=== PATIENT | female | born 1935 | race Caucasian/White ===

== ENCOUNTER 2023-08-17 09:33 | Inpatient (IN) ==
[2023-08-17] MEDS ORDERED: SODIUM CHLORIDE 0.9% 500 ML IV ONE (10:31)
--- NOTE | 2023-08-17 10:34 | Emergency Department Note ---
Impression & Plan Hypoxia, Weakness, Atrial fibrillation with rapid ventricular response, COVID- 19, Elevated troponin ED Provider Note NAME: CAITLIN CALVERT AGE: 87 SEX: F : 1935 ARRIVES VIA: Ambulance INFORMANT: [Patient][ems] ED PROVIDER(S): [Angel Maynard MD] CHIEF COMPLAINT: Short of breath HISTORY OF PRESENT ILLNESS: The patient is an 87-year-old female who by report, tested positive for COVID-19 around 2 days ago. Patient admits to feeling weak and a bit short of breath and tired. She has noticed some issues with her memory. As per EMS, the patient's O2 saturation was 84% with ambulation. She does not typically wear oxygen. The patient denies any chest pain. She denies fever or chills. There has been no nausea or vomiting. No fall. She just feels very washed out. The patient is a poor historian. PMHx/PSHx/Social Hx: See Below PHYSICAL EXAM: GENERAL: Patient is in no acute distress. HEENT: No acute trauma, normocephalic atraumatic, mucous membranes moist, no nasal congestion. NECK: No stridor, no adenopathy, no meningismus, trachea is midline. LUNGS: Clear to auscultation bilaterally, no wheeze, no rhonchi, breath sounds equal. HEART: Moderately tachycardic with a somewhat irregular rhythm, no murmurs. ABDOMEN: Soft, nontender, no peritonitis. EXTREMITIES: No cyanosis, full range of motion of all the joints without pain or difficulty. NEUROLOGIC: Awake and alert, moves all extremities, no speech slur. Pleasantly confused. SKIN: No jaundice, no diaphoresis. DIFFERENTIAL DIAGNOSIS: Pneumonia, dehydration, electrolyte imbalance, COVID-19, among others. EMERGENCY DEPARTMENT PROCEDURES: MEDICAL DECISION MAKING: There is no leukocytosis or concerning anemia. There is a normal platelet count. No coagulopathy. No renal failure or significant electrolyte abnormality. Lactic acid level is not elevated making severe sepsis less likely. There is no concerning liver enzyme elevation. ECG shows a rapid atrial fibrillation with some ST depression, no ST elevation. Cardiac enzyme testing x 1 is slightly elevated. This troponin elevation could be secondary to cardiac injury or potentially just mismatch from the rapid rate and hypoxia. Chest x-ray does not show CHF, pneumonia or pneumothorax. COVID test returned positive. Influenza and RSV test was negative. The patient was in a rapid A-fib. She received a 500 cc saline bolus. She was given 2 puffs of albuterol via MDI. She was given 25 mg of oral metoprolol succinate. She was ordered for an IV diltiazem bolus of 10 mg to be followed by a diltiazem drip. The patient's heart rate has improved, she seems to be resting comfortably. The patient has COVID-19. She presented with outpatient hypoxia, fatigue, weakness and was noted to be in a rapid A-fib here in the ED. The patient is in need of a hospital stay, I did speak with the case management team, the on-call hospitalist has been consulted. Prior/Outside records/notes reviewed: EMS notes. ECG per my interpretation: Indication was shortness of breath. ECG shows atrial fibrillation with a rapid rate. The rate was 160. There was some diffuse ST depression consistent with the faster rate. There is no ST elevation, no PVCs. The QTc was 486. Continuous Cardiac Monitoring per my interpretation: An order was placed for continuous cardiac monitoring. The monitor shows a rate of 145 with atrial fibrillation. Imaging/x-ray results per my interpretation: Chest x-ray shows some chronic change, no obvious focal pneumonia, no CHF. Chronic Medical/Social conditions affecting care: Advanced age. Care/Management discussed with: Case management, the on-call hospitalist. Level of care consideration(s): After review of the information above and other included data: --I believe the patient requires escalation of care to admission Critical Care Note: I have personally spent 45 minutes of critical care time in the direct management of this patient. This includes bedside care, interpretation of diagnostic studies, and testing, discussion with consultants, patient, and family members, and other required patient management activities. This 45 minutes is in excess of all separately billable procedures. DISPOSITION: Admission Past Med/Surg History Medical History Hypertension Social History Smoking Status: Never smoker Preferred Language: Wolof Feels Safe at Home: Yes Allergies Allergies Allergy/AdvReac Type Severity Reaction Status Date / Time aspirin Allergy Severe Hives Unverified 08/17/23 12:24 Results & Data (ED) Vital Signs Vital Signs - 24 hr 08/17/23 09:36 08/17/23 09:36 08/17/23 11:30 Temperature 36.6 C Temperature Source Temporal Artery Scan Pulse Rate 79 141 H Pulse Rate [Apical] Pulse Rhythm [Apical] Respiratory Rate 18 Respiratory Effort / Characteristics Non-Labored Spontaneous Respiratory Depth Normal Respiratory Pattern Regular Blood Pressure 127/90 Blood Pressure [Right Arm] Blood Pressure Mean 102 Blood Pressure Mean [Right Arm] Blood Pressure Position Sitting Pulse Oximetry 97 97 Oxygen Delivery Method Nasal Cannula Nasal Cannula Oxygen Flow Rate 2 2 Sepsis Recent Fever Within 48 Hours No Sepsis New/Unexplained Change in Mental Status N/A Sepsis Action Taken by Nursing No Action Required 08/17/23 11:30 08/17/23 11:31 08/17/23 11:40 Temperature Temperature Source Pulse Rate 141 H 124 H Pulse Rate [Apical] Pulse Rhythm [Apical] Respiratory Rate 25 H 20 Respiratory Effort / Characteristics Respiratory Depth Respiratory Pattern Blood Pressure 152/112 H Blood Pressure [Right Arm] Blood Pressure Mean 117 Blood Pressure Mean [Right Arm] Blood Pressure Position Pulse Oximetry Oxygen Delivery Method Oxygen Flow Rate Sepsis Recent Fever Within 48 Hours Sepsis New/Unexplained Change in Mental Status Sepsis Action Taken by Nursing 08/17/23 11:50 08/17/23 12:00 08/17/23 12:01 Temperature Temperature Source Pulse Rate 98 H 114 H 109 H Pulse Rate [Apical] Pulse Rhythm [Apical] Respiratory Rate 24 25 H 28 H Respiratory Effort / Characteristics Respiratory Depth Respiratory Pattern Blood Pressure Blood Pressure [Right Arm] Blood Pressure Mean Blood Pressure Mean [Right Arm] Blood Pressure Position Pulse Oximetry Oxygen Delivery Method Oxygen Flow Rate Sepsis Recent Fever Within 48 Hours Sepsis New/Unexplained Change in Mental Status Sepsis Action Taken by Nursing 08/17/23 12:01 08/17/23 12:10 08/17/23 13:25 Temperature Temperature Source Pulse Rate 110 H Pulse Rate [Apical] 97 H Pulse Rhythm [Apical] Irregular Respiratory Rate 25 H 24 Respiratory Effort / Characteristics Respiratory Depth Respiratory Pattern Blood Pressure 128/75 Blood Pressure [Right Arm] 110/79 Blood Pressure Mean 84 Blood Pressure Mean [Right Arm] 89 Blood Pressure Position Pulse Oximetry 94 Oxygen Delivery Method Nasal Cannula Oxygen Flow Rate 2 Sepsis Recent Fever Within 48 Hours Sepsis New/Unexplained Change in Mental Status Sepsis Action Taken by [facility] Medications Current Medication List: was personally reviewed by ma Laboratory Data Attestation: I reviewed the patient's lab results. 08/17/23 11:05 08/17/23 11:05 Lab Results 08/17/23 08/17/23 Range/Units 11:05 12:17 WBC 5.72 (4.8-10.8) K/ul RBC 5.77 H (4.20-5.40) M/uL Hgb 16.6 H (12.0-16.0) g/dl Hct 50.1 H (37.0-47.0) % MCV 86.8 (80.0-100.0) fL MCH 28.8 (25.0-34.0) pg MCHC 33.1 (32.0-36.0) g/dL RDW Std Deviation 47.8 H (36.4-46.3) fL RDW Coeff of Turner 15.6 H (11.5-14.5) % Plt Count 164 (130-400) K/uL MPV 11.3 (9.4-12.4) fL Immature Gran % (Auto) 0.3 % Neut % (Auto) 67.9 % Lymph % (Auto) 19.2 % Mccracken % (Auto) 12.4 % Eos % (Auto) 0.0 % Baso % (Auto) 0.2 % Neut # (Auto) 3.88 (1.40-6.50) K/uL Lymph # (Auto) 1.10 L (1.20-3.40) K/uL [place]racken # (Auto) 0.71 H (0.11-0.59) K/uL Eos # (Auto) 0.00 (0.00-0.50) K/uL Baso # (Auto) 0.01 (0.00-0.20) K/uL Immature Gran # (Auto) 0.02 (0.01-0.20) K/uL PT 11.0 (9.0-12.0) Seconds INR 1.0 (0.9-1.1) APTT 30 (21-31) Seconds PTT Ratio 1.1 Sodium 138 (136-145) mmol/L Potassium 4.7 (3.5-5.1) mmol/L Chloride 104 (98-107) mmol/L Carbon Dioxide 21 (21-32) mmol/L Anion Gap 13 H (3-11) BUN 25 H (6-23) mg/dl Creatinine 1.13 (0.6-1.2) mg/dl Est Cr Clr Drug Dosing Not Reportable Est GFR ( Amer) 51.0 ml/min Est GFR (Non-Af Amer) 44.0 ml/min BUN/Creatinine Ratio 22.1 H (10-20) Glucose 83 (70-99(Fasting)) mg/dl Lactate 1.9 (0.4-2.0) mmol/L Calcium 9.6 (8.6-10.3) mg/dl Magnesium 2.0 (1.7-2.4) mg/dl Total Bilirubin 0.6 (0.2-1.0) mg/dl AST 24 (13-39) U/L ALT 11 (7-52) U/L Alkaline Phosphatase 102 (34-104) U/L Troponin I High Sens 34.4 H (0-14) pg/ml Total Protein 7.2 (6.0-8.3) gm/dl Albumin 3.8 (3.4-5.0) gm/dl Globulin 3.4 (2.5-4.0) gm/dl Albumin/Globulin Ratio 1.1 (0.9-2) SARS-CoV-2 (PCR) POSITIVE A* (Negative) Influenza Type A (PCR) Negative (Neg) Influenza Type B (PCR) Negative (Neg) RSV (RT-PCR) Negative (Neg) Administered Medications Diltiazem HCl 125 mg/ Dextrose 125 mls @ 5 mls/hr IV .Q24H [facility]; Protocol Stop: 09/16/23 11:29 Last Admin: 08/17/23 11:54 Dose: 5 mg/hr, 5 mls/hr Documented By: POOJA Co-signed By: DESEAN Discontinued Medications Albuterol (Albuterol Hfa 8 Gm Inhaler) 2 puffs INH NOW ONE Stop: 08/17/23 11:04 Last Admin: 08/17/23 11:57 Dose: 2 puffs Documented By: POOJA Diltiazem HCl (Diltiazem Hcl 5 Mg/Ml 5 Ml Vial) 10 mg IV NOW STA Stop: 08/17/23 11:31 Last Admin: 08/17/23 11:33 Dose: 10 mg Documented By: POOJA Co-signed By: MNE Sodium Chloride (Nss) 500 mls @ 999 mls/hr IV .Q31M ONE Stop: 08/17/23 11:01 Last Infusion: 08/17/23 12:05 Dose: Infused Documented By: Admin: 08/17/23 11:33 Dose: 999 mls/hr Documented By: POOJA Metoprolol Succinate (Metoprolol Succ 25mg Ext Rel Tab) 25 mg PO NOW STA Stop: 08/17/23 11:31 Last Admin: 08/17/23 11:54 Dose: 25 mg Documented By: POOJA Imaging Data Radiologist's Impression: Chest X-Ray 08/17/23 10:19 XR chest 1V not portable CLINICAL HISTORY: Dyspnea TECHNIQUE: Single frontal radiograph of the chest was obtained. Comparison: None available at the time of this dictation. FINDINGS: No lines and tubes are seen. Cardiomegaly is noted. The aortic arch is calcified. The lungs are clear. No evidence of pleural effusion or pneumothorax. IMPRESSION: No acute abnormalities and in particular no radiographic evidence of pneumonia. ACT 112: Negative or not required by law. Electronically signed by: Shin Thao M.D. 08/17/2023 10:44 AM Discharge Plan Visit Data Chief Complaint: Shortness of Breath/Dyspnea Stated Complaint: SHORTNESS OF BREATH ED Provider: Angel Maynard Discharge Problem: Hypoxia, Weakness, Atrial fibrillation with rapid ventricular response, COVID- 19, Elevated troponin Patient Disposition: Admitted As Inpatient Condition: Fair Forms Stand Alone Forms: [facility] Referrals Referrals: PCP,NO [Primary Care Provider] -
--- NOTE | 2023-08-17 10:46 | XRay Report ---
XR chest 1V not portable CLINICAL HISTORY: Dyspnea TECHNIQUE: Single frontal radiograph of the chest was obtained. Comparison: None available at the time of this dictation. FINDINGS: No lines and tubes are seen. Cardiomegaly is noted. The aortic arch is calcified. The lungs are clear . No evidence of pleural effusion or pneumothorax. IMPRESSION: No acute abnormalities and in particular no radiographic evidence of pneumonia. ACT 112: Negative or not required by law. Electronically signed by: Shin Thao M.D. 08/17/2023 10:44 AM
[2023-08-17] MEDS ORDERED: ALBUTEROL HFA 8 GM INHALER INH ONE (11:03)
[2023-08-17 11:27] LABS: Basophils # (auto) 0.01 K/uL (0.00-0.20); Basophils % (auto) 0.2 %; Hematocrit (blood only) 50.1 % (37.0-47.0); Hemoglobin 16.6 g/dl (12.0-16.0); Immature Granulocytes # (auto) 0.02 K/uL (0.01-0.20); Immature Granulocytes % (auto) 0.3 %; Lymphocytes % (auto) 19.2 %; Mean Corpuscular Hemoglobin 28.8 pg (25.0-34.0); Mean Corpuscular Hgb Conc 33.1 g/dL (32.0-36.0); Mean Corpuscular Volume 86.8 fL (80.0-100.0); Mean Platelet Volume 11.3 fL (9.4-12.4); Monocytes # (auto) 0.71 K/uL (0.11-0.59); Monocytes % (auto) 12.4 %; Neutrophils # (auto) 3.88 K/uL (1.40-6.50); Neutrophils % (auto) 67.9 %; Platelet Count 164 K/uL (130-400); RDW Coefficient of Variation 15.6 % (11.5-14.5); RDW Standard Deviation 47.8 fL (36.4-46.3); Red Blood Count 5.77 M/uL (4.20-5.40); White Blood Count 5.72 K/ul (4.8-10.8)
[2023-08-17] MEDS ORDERED: dilTIAZem HCl 5 MG/ML 5 ML VIAL IV STA (11:30)
[2023-08-17] MEDS ORDERED: STAT IV Infusion **Titration per Protocol STA (11:30)
[2023-08-17] MEDS ORDERED: METOPROLOL SUCC 25MG EXT REL TAB PO STA (11:30)
[2023-08-17 11:42] LABS: Alanine Aminotransferase 11 U/L (7-52); Albumin Globulin Ratio 1.1 (0.9-2); Albumin Level 3.8 gm/dl (3.4-5.0); Alkaline Phosphatase 102 U/L (34-104); Anion Gap 13 (3-11); Aspartate Aminotransferase 24 U/L (13-39); BUN Creatinine Ratio 22.1 (10-20); Bilirubin,Total 0.6 mg/dl (0.2-1.0); Blood Urea Nitrogen 25 mg/dl (6-23); Calcium 9.6 mg/dl (8.6-10.3); Carbon Dioxide 21 mmol/L (21-32); Chloride 104 mmol/L (98-107); Globulin 3.4 gm/dl (2.5-4.0); Glucose 83 mg/dl (70-99(Fasting)); Potassium 4.7 mmol/L (3.5-5.1); Sodium 138 mmol/L (136-145); Total Protein 7.2 gm/dl (6.0-8.3)
[2023-08-17 11:48] LABS: Troponin I High Sensitivity 34.4 pg/ml (0-14)
[2023-08-17] MEDS: dilTIAZem HCL 125 MG in DEXTROSE 5% 100 ML IV SCH (11:54)
[2023-08-17 12:03] LABS: Influenza A virus by PCR Negative (Neg); Influenza B virus by PCR Negative (Neg); RSV by PCR Negative (Neg)
[2023-08-17 12:12] LABS: Partial Thromboplastin Ratio 1.1; Partial Thromboplastin Time 30 Seconds (21-31)
[2023-08-17 12:22] LABS: SARS CoV2 RNA(COVID-19) Ceph POSITIVE (Negative)
--- NOTE | 2023-08-17 12:56 | History & Physical Report ---
Date of Service August 17, 2023 Assessment & Plan (1) Confusion and disorientation: (2) COVID-19: (3) Atrial fibrillation with rapid ventricular response: (4) Weakness: (5) Dementia: (6) Hyperlipidemia: (7) Asthma: (8) Thoracic aortic ectasia: (9) CAD (coronary artery disease): (10) GERD (gastroesophageal reflux disease): (11) Neuropathy: (12) Restless leg syndrome: (13) Hypoxia: (14) Elevated troponin: Plan Confusion and disorientation- Multiple likely contributing factors including but not limited to: Aggravation of underlying dementia, COVID-19 infection, atrial fibrillation with RVR, dehydration Atrial fibrillation with RVR/A-fib history/elevated troponin- The patient will be admitted to telemetry for serial cardiac enzymes, serial EKG's, cardiac rhythm monitoring and a 2-D echocardiogram with Dopplers. Given diltiazem 10 mg IV followed by diltiazem drip with titration protocol, and will continue She was also given metoprolol succinate 25 mg p.o. by ED Troponin on admission was 34.4, follow serially, but likely secondary to A-fib with RVR Status post normal saline 500 mL bolus Give additional normal saline at 80 mL/h for additional 500 mL Continue apixaban COVID-19 infection- unclear length of time that she has had the infection EMS reports that she was 84% on room air when initially seen She has improved to 94% on room air Hold treatment at this time due to lack of pulmonary symptoms, and concern regarding possibly aggravating current confusion History of Present Illness Chief Complaint: The patient is referred from the [place], due to issues of worsening confusion and generalized weakness. Primary Care Provider: NO PCP The patient is an 87-year-old female with a past medical history including CAD, atrial fibrillation on Eliquis, hyperlipidemia, thoracic aortic ectasia, GERD, neuropathy, thrombocytopenia, restless leg syndrome, dementia, anxiety, and asthma who was referred to the emergency department due to worsening confusion over the past few days. The patient is very confused upon presentation, and is not able to contribute to her HPI or review of systems. Information is reviewed from the [place]. Significant laboratories: Troponin 34.4, hemoglobin 16.6, hematocrit 50.1, COVID-19 positive. RSV negative and influenza negative EKG shows atrial fibrillation with RVR at 160, for which she was given diltiazem 10 mg IV followed by diltiazem drip with titration protocol, NSS 500 mL, and metoprolol succinate 25 mg p.o. with improved rate control. Ordered CT head without contrast to further assess confused state Allergies Allergy/AdvReac Type Severity Reaction Status Date / Time aspirin Allergy Severe Hives Unverified 08/17/23 12:24 Home Medications Medication Instructions Recorded Confirmed Type acetaminophen 325 mg tablet 650 mg PO Q6H PRN pain or fever 08/17/23 08/17/23 History (Tylenol) apixaban 2.5 mg tablet (Eliquis) 2.5 mg PO DAILY 08/17/23 08/17/23 History buspirone 5 mg tablet 5 mg PO Q8H PRN Anxiety 08/17/23 08/17/23 History pantoprazole 20 mg tablet,delayed 20 mg PO DAILY 08/17/23 08/17/23 History release ropinirole 4 mg tablet 2 mg PO BID 08/17/23 08/17/23 History venlafaxine 150 mg 150 mg PO DAILY 08/17/23 08/17/23 History capsule,extended release 24 hr Past Med/Surg History Medical History (Updated 08/17/23 @ 18:29 by Stefano Arriaga MD) Restless leg syndrome Neuropathy GERD (gastroesophageal reflux disease) CAD (coronary artery disease) Thoracic aortic ectasia Asthma Hyperlipidemia Dementia Hypertension Social History Smoking Status: Never smoker Hx Alcohol Use: No Hx Substance Use: No Preferred Language: Occitan Communication Ability: Effective Lidar Scientist Required: No Beliefs That Will Affect Care: None Current Living Situation: Alone Feels Safe at Home: Yes Assistive Devices: Glasses Review of Systems Review of Systems: Not obtainable due to dementia and altered mental state Physical Exam Physical Exam: The patient is awake, very confused, oftentimes repeating the same question, normocephalic and atraumatic, lying in bed and in no acute distress. HEENT--PERRL, EOMI, mucous membranes and oropharynx mildly dry. Neck--supple. No JVD. No bruits. Thyroid normal, trachea midline, no adenopathy. Heart--normal S1 and S2. No murmurs, rubs or gallops. Lungs--clear bilaterally, no respiratory distress, no accessory muscle use. Abdomen--normal bowel sounds and soft. Nontender. Nondistended Dermatologic--normal skin turgor, normal color, Neurologic--cranial nerves II through XII grossly intact. Rheumatologic--normal range of motion. Psychiatric--very confused Results & Data Results & Data Vital Signs (Past 12 Hours) Vital Signs Temp Pulse Resp BP Pulse Ox O2 Del Method O2 Flow Rate 08/17/23 11:30 141 H 08/17/23 09:36 97 Nasal Cannula 2 08/17/23 09:36 36.6 C 79 18 127/90 97 Nasal Cannula 2 Laboratory Results Laboratory Results WBC 5.72 K/ul (4.8-10.8) 08/17/23 11:05 RBC 5.77 M/uL (4.20-5.40) H 08/17/23 11:05 Hgb 16.6 g/dl (12.0-16.0) H 08/17/23 11:05 Hct 50.1 % (37.0-47.0) H 08/17/23 11:05 MCV 86.8 fL (80.0-100.0) 08/17/23 11:05 MCH 28.8 pg (25.0-34.0) 08/17/23 11:05 MCHC 33.1 g/dL (32.0-36.0) 08/17/23 11:05 RDW Std Deviation 47.8 fL (36.4-46.3) H 08/17/23 11:05 RDW Coeff of Turner 15.6 % (11.5-14.5) H 08/17/23 11:05 Plt Count 164 K/uL (130-400) 08/17/23 11:05 MPV 11.3 fL (9.4-12.4) 08/17/23 11:05 Immature Gran % (Auto) 0.3 % 08/17/23 11:05 Neut % (Auto) 67.9 % 08/17/23 11:05 Lymph % (Auto) 19.2 % 08/17/23 11:05 [place] % (Auto) 12.4 % 08/17/23 11:05 Eos % (Auto) 0.0 % 08/17/23 11:05 Baso % (Auto) 0.2 % 08/17/23 11:05 Neut # (Auto) 3.88 K/uL (1.40-6.50) 08/17/23 11:05 Lymph # (Auto) 1.10 K/uL (1.20-3.40) L 08/17/23 11:05 [place] # (Auto) 0.71 K/uL (0.11-0.59) H 08/17/23 11:05 Eos # (Auto) 0.00 K/uL (0.00-0.50) 08/17/23 11:05 Baso # (Auto) 0.01 K/uL (0.00-0.20) 08/17/23 11:05 Immature Gran # (Auto) 0.02 K/uL (0.01-0.20) 08/17/23 11:05 PT 11.0 Seconds (9.0-12.0) 08/17/23 11:05 INR 1.0 (0.9-1.1) 08/17/23 11:05 APTT 30 Seconds (21-31) 08/17/23 11:05 PTT Ratio 1.1 08/17/23 11:05 Sodium 138 mmol/L (136-145) 08/17/23 11:05 Potassium 4.7 mmol/L (3.5-5.1) 08/17/23 11:05 Chloride 104 mmol/L (98-107) 08/17/23 11:05 Carbon Dioxide 21 mmol/L (21-32) 08/17/23 11:05 Anion Gap 13 (3-11) H 08/17/23 11:05 BUN 25 mg/dl (6-23) H 08/17/23 11:05 Creatinine 1.13 mg/dl (0.6-1.2) 08/17/23 11:05 Est Cr Clr Drug Dosing Not Reportable 08/17/23 11:05 Est GFR ( Amer) 51.0 ml/min 08/17/23 11:05 Est GFR (Non-Af Amer) 44.0 ml/min 08/17/23 11:05 BUN/Creatinine Ratio 22.1 (10-20) H 08/17/23 11:05 Glucose 83 mg/dl (70-99(Fasting)) 08/17/23 11:05 Lactate 1.9 mmol/L (0.4-2.0) 08/17/23 12:17 Calcium 9.6 mg/dl (8.6-10.3) 08/17/23 11:05 Magnesium 2.0 mg/dl (1.7-2.4) 08/17/23 11:05 Total Bilirubin 0.6 mg/dl (0.2-1.0) 08/17/23 11:05 AST 24 U/L (13-39) 08/17/23 11:05 ALT 11 U/L (7-52) 08/17/23 11:05 Alkaline Phosphatase 102 U/L (34-104) 08/17/23 11:05 Troponin I High Sens 34.4 pg/ml (0-14) H 08/17/23 11:05 Total Protein 7.2 gm/dl (6.0-8.3) 08/17/23 11:05 Albumin 3.8 gm/dl (3.4-5.0) 08/17/23 11:05 Globulin 3.4 gm/dl (2.5-4.0) 08/17/23 11:05 Albumin/Globulin Ratio 1.1 (0.9-2) 08/17/23 11:05 SARS-CoV-2 (PCR) POSITIVE (Negative) A* 08/17/23 11:05 Influenza Type A (PCR) Negative (Neg) 08/17/23 11:05 Influenza Type B (PCR) Negative (Neg) 08/17/23 11:05 RSV (RT-PCR) Negative (Neg) 08/17/23 11:05 Impressions Chest X-Ray 08/17/23 10:19 XR chest 1V not portable CLINICAL HISTORY: Dyspnea TECHNIQUE: Single frontal radiograph of the chest was obtained. Comparison: None available at the time of this dictation. FINDINGS: No lines and tubes are seen. Cardiomegaly is noted. The aortic arch is calcified. The lungs are clear. No evidence of pleural effusion or pneumothorax. IMPRESSION: No acute abnormalities and in particular no radiographic evidence of pneumonia. ACT 112: Negative or not required by law. Electronically signed by: Shin Thao M.D. 08/17/2023 10:[address] 08/17/23 12:49 CT SCAN OF THE BRAIN WITHOUT IV CONTRAST CLINICAL HISTORY: Change in mental status. COMPARISON STUDY: No priors. TECHNIQUE: Unenhanced axial CT scan of the brain is performed from the vertex to the skull base. A dose lowering technique was utilized adhering to the principles of ALARA. CT DOSE: 547.75 mGy.cm FINDINGS: Brain parenchyma: There is age-related involutional change noting moderate confluent subcortical and periventricular microangiopathic disease. There is no hemorrhage, mass effect, or evidence of acute territorial ischemia by CT criteria. 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 Leon- white matter differentiation is preserved. No extra-axial fluid collection is seen. Ventricles, sulci, cisterns: Prominent secondary to involutional change. Intracranial vasculature: There is atherosclerotic calcification of the cavernous carotid and vertebral arteries. Calvarium: Unremarkable. Sinuses and mastoids: There is an air-fluid level in the right maxillary antrum. Trace mucosal thickening is noted in the ethmoid, left frontal, sphenoid, and left maxillary sinuses. The mastoid air cells are well pneumatized. Orbits: The bony orbits are grossly intact. There are bilateral ocular lens implants. IMPRESSION: There is no hemorrhage, mass effect, or evidence of acute t erritorial ischemia by CT criteria. ACT 112: Negative or not required by law. Electronically signed by: Angel Brock M.D. 08/17/2023 2:16 PM Code Status & VTE Plan Code Status DNR/DNI VTE Prophylaxis Plan VTE Prophylaxis will be ordered: Yes PG Care Time/CCT Total # of Minutes Spent Total Time Spent with Patient: Total time spent is greater than 50% in coordination of care (as documented) at patient's floor/unit and/or counseling patient: Coding Level of Care Code 66587 INT INP/OBS CARE 3/75MIN Diagnoses Confusion and disorientation R41.0 COVID-19 U07.1 Atrial fibrillation with rapid ventricular response I48.91 Weakness R53.1 Dementia F03.90 Hyperlipidemia E78.5 Asthma J45.909 Thoracic aortic ectasia I77.810 CAD (coronary artery disease) I25.10 GERD (gastroesophageal reflux disease) K21.9 Neuropathy G62.9 Restless leg syndrome G25.81 Hypoxia R09.02 Elevated troponin R79.89
--- NOTE | 2023-08-17 13:50 | Electrocardiogram Report ---
Test Reason : Blood Pressure : / mmHG Vent. Rate : 160 BPM Atrial Rate : 000 BPM P-R Int : 000 ms QRS Dur : 070 ms QT Int : 298 ms P-R-T Axes : 000 057 267 degrees QTc Int : 486 ms Atrial fibrillation with rapid ventricular response Abnormal ECG No previous ECGs available Confirmed by Jose Kaplan ([id number]) on 08/17/2023 1:49:22 PM Referred By: REFERRED SELF Confirmed By:Memo Kaplan
--- NOTE | 2023-08-17 14:18 | CT Scan Report ---
CT SCAN OF THE BRAIN WITHOUT IV CONTRAST CLINICAL HISTORY: Change in mental status. COMPARISON STUDY: No priors. TECHNIQUE: Unenhanced axial CT scan of the brain is performed from the vertex to the skull base. A do se lowering technique was utilized adhering to the principles of ALARA. CT DOSE: 547.75 mGy.cm FINDINGS: Brain parenchyma: There is age-related involutional change noting moderate confluent subcortical and periventricular microangiopathic disease. There is no hemorrhage, mass effect, or evidence of acute t erritorial ischemia by CT criteria. 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 Gr ay-white matter differentiation is preserved. No extra-axial fluid collection is seen. Ventricles, sulci, cisterns: Prominent secondary to involutional change. Intracranial vasculature: There is atherosclerotic calcification of the cavernous carotid and vertebr al arteries. Calvarium: Unremarkable. Sinuses and mastoids: There is an air-fluid level in the right maxillary antrum. Trace mucosal thicke royce is noted in the ethmoid, left frontal, sphenoid, and left maxillary sinuses. The mastoid air krystyna ls are well pneumatized. Orbits: The bony orbits are grossly intact. There are bilateral ocular lens implants. IMPRESSION: There is no hemorrhage, mass effect, or evidence of acute territorial ischemia by CT abran rizzo. ACT 112: Negative or not required by law. Electronically signed by: Angel Brock M.D. 08/17/2023 2:16 PM
[2023-08-17] MEDS ORDERED: ACETAMINOPHEN 325 MG TAB PO PRN (14:36)
[2023-08-17] MEDS ORDERED: ONDANSETRON INJ 2 MG/ML 2 ML VIAL IV PRN (14:36)
[2023-08-17] MEDS ORDERED: SODIUM CHLORIDE 0.9% 1,000 ML IV SCH (14:36)
--- NOTE | 2023-08-17 16:47 | Cardiology Consultation ---
Date of Consultation August 17, 2023 Assessment & Plan (1) Atrial fibrillation with rapid ventricular response: Plan 1. Atrial fibrillation: Patient with a history of atrial fibrillation. No documentation regarding the chronicity of her atrial fibrillation. Possibly permanent. Possibly paroxysmal. It is very likely that the higher ventricular rates are associated with her viral infection and possibly an element volume depletion. No symptoms. Continue diltiazem infusion Add oral metoprolol on a scheduled basis titrating the dose so that the diltiazem can be discontinued Continue volume repletion Ventricular rates may improve as her clinical condition resolves itself Continue systemic anticoagulation 2. Elevated troponin: This is a setting of high ventricular rates. Very mild elevation. Not indicative of an acute coronary syndrome. I would not pursue this further given her overall good clinical status and significant dementia. Dr. Oliveira will be covering the cardiology service for the next 3 days. Please contact him if you require further assistance History of Present Illness Reason for Consultation: Atrial fibrillation Requesting Physician: Bart Attending Physician: Stefano Arriaga MD History of Present Illness Patient suffers from dementia and can provide no meaningful history. Reportedly the patient was brought from assisted living facility ([facility]) although no documentation from the facility was available for my review. Reportedly she has a history of atrial fibrillation She presented with atrial fibrillation. This consult was requested for assistance with atrial fibrillation Allergies Allergy/AdvReac Type Severity Reaction Status Date / Time aspirin Allergy Severe Hives Unverified 08/17/23 12:24 Home Medications Medication Instructions Recorded Confirmed Type acetaminophen 325 mg tablet 650 mg PO Q6H PRN pain or fever 08/17/23 08/17/23 History (Tylenol) apixaban 2.5 mg tablet (Eliquis) 2.5 mg PO DAILY 08/17/23 08/17/23 History buspirone 5 mg tablet 5 mg PO Q8H PRN Anxiety 08/17/23 08/17/23 History pantoprazole 20 mg tablet,delayed 20 mg PO DAILY 08/17/23 08/17/23 History release ropinirole 4 mg tablet 2 mg PO BID 08/17/23 08/17/23 History venlafaxine 150 mg 150 mg PO DAILY 08/17/23 08/17/23 History capsule,extended release 24 hr Patient History Medical History Hypertension Social History Smoking Status: Never smoker Hx Alcohol Use: No Hx Substance Use: No Preferred Language: Italian Communication Ability: Effective 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 She was not sure why she was in the hospital. She specifically denied chest pain, palpitations, breathing difficulty, recent fevers or chills or headache. She denies any history of swelling in her lower extremities. Physical Exam Physical Exam: She is alert and was able answer questions. Most answers were not appropriate or correct. She was not oriented to place or situation. She did remember birthday. HEENT: Sclerae are anicteric. Pupils are equal and reactive to light and accommodation. Extraocular movements were intact. Neuro: Cranial nerves intact Lungs: Lungs are clear to auscultation bilaterally. There are no rales wheezes or rhonchi. She has normal respiratory effort without use of accessory muscles. There is normal pulmonary excursion. Cardiac: The rhythm was irregular. She was tachycardic S1 and S2 were normal. There are no murmurs on examination. The PMI was not markedly displaced on palpation. Extremities: Patient has bilateral radial pulses that are equal in intensity. There is no evidence cyanosis or clubbing. There was no evidence of significant peripheral edema bilaterally. Skin: There are no rashes noted on examination today. Results & Data Vital Signs (Past 12 Hours) Vital Signs Temp Pulse Pulse Resp BP BP Pulse Ox 08/17/23 14:43 08/17/23 14:43 36.4 C L 103 H 18 128/90 100 08/17/23 13:45 108 H 17 120/91 93 08/17/23 13:44 08/17/23 13:25 97 H 24 110/79 94 08/17/23 12:10 110 H 25 H 08/17/23 12:01 128/75 08/17/23 12:01 109 H 28 H 08/17/23 12:00 114 H 25 H 08/17/23 11:50 98 H 24 08/17/23 11:40 124 H 20 08/17/23 11:31 141 H 25 H 08/17/23 11:30 152/112 H 08/17/23 11:30 141 H 08/17/23 09:36 97 08/17/23 09:36 36.6 C 79 18 127/90 97 O2 Del Method O2 Flow Rate 08/17/23 14:43 Nasal Cannula 2 08/17/23 14:43 Nasal Cannula 2 08/17/23 13:45 Nasal Cannula 2 08/17/23 13:44 Nasal Cannula 2 08/17/23 13:25 Nasal Cannula 2 08/17/23 12:10 08/17/23 12:01 08/17/23 12:01 08/17/23 12:00 08/17/23 11:50 08/17/23 11:40 08/17/23 11:31 08/17/23 11:30 08/17/23 11:30 08/17/23 09:36 Nasal Cannula 2 08/17/23 09:36 Nasal Cannula 2 Laboratory Results Abnormal Lab Results 08/17/23 08/17/23 11:05 12:17 WBC 5.72 RBC 5.77 H Hgb 16.6 H Hct 50.1 H MCV 86.8 MCH 28.8 MCHC 33.1 RDW Std Deviation 47.8 H RDW Coeff of Turner 15.6 H Plt Count 164 MPV 11.3 Immature Gran % (Auto) 0.3 Neut % (Auto) 67.9 Lymph % (Auto) 19.2 Saunders % (Auto) 12.4 Eos % (Auto) 0.0 Baso % (Auto) 0.2 Neut # (Auto) 3.88 Lymph # (Auto) 1.10 L Saunders # (Auto) 0.71 H Eos # (Auto) 0.00 Baso # (Auto) 0.01 Immature Gran # (Auto) 0.02 PT 11.0 INR 1.0 APTT 30 PTT Ratio 1.1 Sodium 138 Potassium 4.7 Chloride 104 Carbon Dioxide 21 Anion Gap 13 H BUN 25 H Creatinine 1.13 Est Cr Clr Drug Dosing Not Reportable Est GFR ( Amer) 51.0 Est GFR (Non-Af Amer) 44.0 BUN/Creatinine Ratio 22.1 H Glucose 83 Lactate 1.9 Calcium 9.6 Magnesium 2.0 Total Bilirubin 0.6 AST 24 ALT 11 Alkaline Phosphatase 102 Troponin I High Sens 34.4 H Total Protein 7.2 Albumin 3.8 Globulin 3.4 Albumin/Globulin Ratio 1.1 SARS-CoV-2 (PCR) POSITIVE A* Influenza Type A (PCR) Negative Influenza Type B (PCR) Negative RSV (RT-PCR) Negative Diagnostic Findings Chest x-ray was obtained the time admission. No abnormalities. ECG Additional Comments: EKG obtained the time admission revealed atrial fibrillation rapid ventricular rate. PG Care Time/CCT Total # of Minutes Spent Total Time Spent with Patient: Total time spent is greater than 50% in coordination of care (as documented) at patient's floor/unit and/or counseling patient: Coding Level of Care Code 50518 INT INP/OBS CARE 375MIN Diagnoses Atrial fibrillation with rapid ventricular response I48.91
[2023-08-17] MEDS: APIXABAN 2.5 MG TAB PO SCH (20:43)
[2023-08-17] MEDS: rOPINIRole HCL 2 MG TABLET PO SCH (20:43)
[2023-08-18] MEDS ORDERED: OLANZapine 10 MG/2.1 ML SDV IM STA ×3 (02:23→20:35)
[2023-08-18] MEDS: dilTIAZem HCL 125 MG in DEXTROSE 5% 100 ML IV SCH (03:19)
[2023-08-18 06:39] LABS: Basophils # (auto) 0.01 K/uL (0.00-0.20); Basophils % (auto) 0.2 %; Hematocrit (blood only) 43.4 % (37.0-47.0); Hemoglobin 13.9 g/dl (12.0-16.0); Immature Granulocytes # (auto) 0.01 K/uL (0.01-0.20); Immature Granulocytes % (auto) 0.2 %; Lymphocytes # (auto) 0.92 K/uL (1.20-3.40); Lymphocytes % (auto) 20.7 %; Mean Corpuscular Hemoglobin 28.8 pg (25.0-34.0); Mean Platelet Volume 11.4 fL (9.4-12.4); Monocytes # (auto) 0.41 K/uL (0.11-0.59); Monocytes % (auto) 9.2 %; Neutrophils % (auto) 69.7 %; Platelet Count 116 K/uL (130-400); RDW Coefficient of Variation 14.7 % (11.5-14.5); RDW Standard Deviation 48.5 fL (36.4-46.3); Red Blood Count 4.82 M/uL (4.20-5.40); White Blood Count 4.45 K/ul (4.8-10.8)
[2023-08-18 06:47] LABS: Albumin Globulin Ratio 1.3 (0.9-2); Albumin Level 3.5 gm/dl (3.4-5.0); BUN Creatinine Ratio 27.2 (10-20); Bilirubin,Total 0.5 mg/dl (0.2-1.0); Calcium 8.8 mg/dl (8.6-10.3); Creatinine Clr Calc Pharmacy 33.6 ml/min; Est GFR (Non-African American) 49.2 ml/min; Globulin 2.7 gm/dl (2.5-4.0); Magnesium 1.8 mg/dl (1.7-2.4); Potassium 3.8 mmol/L (3.5-5.1); Total Protein 6.2 gm/dl (6.0-8.3)
--- NOTE | 2023-08-18 07:02 | Hospitalist Progress Note ---
Date of Service August 18, 2023 Assessment & Plan (1) Confusion and disorientation: (2) COVID-19: (3) Atrial fibrillation with rapid ventricular response: (4) Weakness: (5) Dementia: (6) Hyperlipidemia: (7) Asthma: (8) Thoracic aortic ectasia: (9) CAD (coronary artery disease): (10) GERD (gastroesophageal reflux disease): (11) Neuropathy: (12) Restless leg syndrome: (13) Hypoxia: (14) Elevated troponin: Plan The patient is an 87-year-old female with a past medical history including CAD, atrial fibrillation on Eliquis, hyperlipidemia, thoracic aortic ectasia, GERD, neuropathy, thrombocytopenia, restless leg syndrome, dementia, anxiety, and asthma who was admitted to the hospital for worsening confusion and hypoxia. Confusion and disorientation -multiple etiologies; COVID-19 infection, A-fib with RVR, dehydration, and aggravation of underlying dementia. -Head CT negative -Requiring Zyprexa overnight for confusion and agitation. Required another dose this afternoon. 1 to 1 ordered. -Baseline mental status at this time, though having confusion. -blood culture negative x 24 hours. Atrial fibrillation with RVR -Cardiology consulted: -Continue diltiazem infusion. Add oral metoprolol to titrate off diltiazem drip. -Continue with volume repletion and anticoagulation. -ECHO showed EF 55-60, mild concentric LVH, mild AR, moderately dilated LA and RA, moderate to severe TR, RVSP elevated at 30-40mmHg. -Given a total of 1 L normal saline. -Started on metoprolol titrate 25mg BID. Will plan titrate off diltiazem. -Continue Eliquis 2.5 mg twice daily. Elevated troponin -Troponin of 34.4 on admission, repeat of 29.5. -Mild elevation, no indication of ACS at this time per cardiology. -Cardiology following. COVID-19 infection -Chest x-ray negative. -EMS reports that she was 84% on room air when initially seen -She has improved to 96% on room air. -Hold treatment at this time due to lack of pulmonary symptoms, and concern reg arding possibly aggravating current confusion Admission and Anticipated Discharge Date Admission Date: August 17, 2023 Supervising Physician Co-Signing Physician Notes I personally examined the patient and verified banda points of history and exam, d iscussed case, and agree with decision making and plan documented by Dr. Perez. Covid 19 positive with mild symptoms at present. Patient presented with afib w/RVR, converted to sinus rhythm overnight on diltiazem drip, will transition to po metoprolol, patient already on apixaban. Patient very confused and disoriented, intermittently agitated, 1:1 ordered. Subjective Patient seen beside this AM. She is AnOx 1 (self only), she states that she feels good and that her cough is getting better. Spoke to Son about patient. Who states that she is at her baseline mentally. She lives at assisted living at [facility]. Review of Systems Review of Systems: All systems reviewed & are unremarkable except as noted in Subjective Physical Exam Physical Exam: Constitutional: well-appearing, no acute distress, AnOx 1 (self only), very confused HEENT: NCAT, no conjunctival injection CV: regular rhythm, no murmur appreciated, extremities well-perfused, no LE edema Resp: CTABL, no wheezes/rales/rhonchi appreciated, no increased work of breathing GI: soft, nondistended, nontender, BS normoactive MSK: no gross deformities appreciated Skin: warm, dry, no rash appreciated Neuro: no focal neurologic deficit appreciated, confused Results & Data Results & Data Vital Signs (Past 12 Hours) Vital Signs Temp Pulse Pulse Resp BP Pulse Ox O2 Del Method 08/18/23 03:00 36.5 C 68 16 118/80 96 Nasal Cannula 08/17/23 23:00 36.5 C 67 21 136/84 96 Nasal Cannula 08/17/23 23:00 75 08/17/23 20:35 Room Air 08/17/23 19:00 36.5 C 71 16 110/73 95 Room Air Resident Activity Tracking Resident Involvement: Resident Care Provided Care Provided: Adult Hospital Medicine
[2023-08-18] MEDS: APIXABAN 2.5 MG TAB PO SCH ×2 (07:58→21:20)
[2023-08-18] MEDS: rOPINIRole HCL 2 MG TABLET PO SCH ×2 (07:58→21:22)
[2023-08-18] MEDS: VENLAFAXINE HCL XR 150 MG CAPXR PO SCH (07:58)
[2023-08-18] MEDS: PANTOprazole 40 MG TAB PO SCH (07:59)
--- NOTE | 2023-08-18 12:22 | XCELERA ---
[id number]
[2023-08-18] MEDS ORDERED: METOPROLOL SUCC 25MG EXT REL TAB PO SCH (12:30)
[2023-08-18] MEDS: ACETAMINOPHEN 325 MG TAB PO PRN (12:54)
[2023-08-18] MEDS ORDERED: METOPROLOL TARTRATE 25 MG TAB PO ONE (13:10)
[2023-08-18] MEDS ORDERED: LACTATED RINGER'S 500 ML IV SCH (15:00)
[2023-08-18] MEDS: METOPROLOL TARTRATE 25 MG TAB PO SCH (21:20)
[2023-08-19 06:42] LABS: Basophils # (auto) 0.01 K/uL (0.00-0.20); Basophils % (auto) 0.2 %; Hematocrit (blood only) 47.8 % (37.0-47.0); Hemoglobin 16.1 g/dl (12.0-16.0); Immature Granulocytes # (auto) 0.01 K/uL (0.01-0.20); Immature Granulocytes % (auto) 0.2 %; Lymphocytes # (auto) 1.26 K/uL (1.20-3.40); Lymphocytes % (auto) 24.1 %; Mean Corpuscular Hemoglobin 29.1 pg (25.0-34.0); Mean Corpuscular Hgb Conc 33.7 g/dL (32.0-36.0); Mean Corpuscular Volume 86.3 fL (80.0-100.0); Monocytes # (auto) 0.47 K/uL (0.11-0.59); Neutrophils # (auto) 3.47 K/uL (1.40-6.50); Neutrophils % (auto) 66.5 %; Platelet Count 146 K/uL (130-400); RDW Coefficient of Variation 14.6 % (11.5-14.5); RDW Standard Deviation 46.4 fL (36.4-46.3); Red Blood Count 5.54 M/uL (4.20-5.40); White Blood Count 5.22 K/ul (4.8-10.8)
[2023-08-19 07:07] LABS: Albumin Globulin Ratio 1.4 (0.9-2); Albumin Level 3.8 gm/dl (3.4-5.0); BUN Creatinine Ratio 22.7 (10-20); Bilirubin,Total 0.7 mg/dl (0.2-1.0); Calcium 9.2 mg/dl (8.6-10.3); Creatinine Clr Calc Pharmacy 39.1 ml/min; Est GFR (Non-African American) 59.5 ml/min; Globulin 2.8 gm/dl (2.5-4.0); Magnesium 1.7 mg/dl (1.7-2.4); Potassium 4.1 mmol/L (3.5-5.1); Total Protein 6.6 gm/dl (6.0-8.3)
--- NOTE | 2023-08-19 07:11 | Discharge Summary ---
Date of Service August 19, 2023 Admission HPI Per Admitting Provider The patient is an 87-year-old female with a past medical history including CAD, atrial fibrillation on Eliquis, hyperlipidemia, thoracic aortic ectasia, GERD, neuropathy, thrombocytopenia, restless leg syndrome, dementia, anxiety, and asthma who was referred to the emergency department due to worsening confusion over the past few days. The patient is very confused upon presentation, and is not able to contribute to her HPI or review of systems. Information is reviewed from the [place]. Significant laboratories: Troponin 34.4, hemoglobin 16.6, hematocrit 50.1, COVID-19 positive. RSV negative and influenza negative EKG shows atrial fibrillation with RVR at 160, for which she was given diltiazem 10 mg IV followed by diltiazem drip with titration protocol, NSS 500 mL, and metoprolol succinate 25 mg p.o. with improved rate control. Ordered CT head without contrast to further assess confused state Discharge Data Allergies Allergy/AdvReac Type Severity Reaction Status Date / Time aspirin Allergy Severe Hives Unverified 08/17/23 12:24 Consultations 08/17/23 11:58 ED Decision to Admit Stat 08/17/23 14:36 Consult Cardiology Routine Ordered Studies 08/17/23 12:49 CT head/brain wo con Stat Hospital Course (1) Confusion and disorientation: (2) COVID-19: (3) Atrial fibrillation with rapid ventricular response: (4) Weakness: (5) Dementia: (6) Hyperlipidemia: (7) Asthma: (8) Thoracic aortic ectasia: (9) CAD (coronary artery disease): (10) GERD (gastroesophageal reflux disease): (11) Neuropathy: (12) Restless leg syndrome: (13) Hypoxia: (14) Elevated troponin: Plan The patient is an 87-year-old female with a past medical history including CAD, atrial fibrillation on Eliquis, hyperlipidemia, thoracic aortic ectasia, GERD, neuropathy, thrombocytopenia, restless leg syndrome, dementia, anxiety, and asthma who was admitted to the hospital for worsening confusion and hypoxia. Confusion and disorientation -multiple etiologies; COVID-19 infection, A-fib with RVR, dehydration, and aggravation of underlying dementia. -Head CT negative -Requiring Zyprexa overnight for confusion and agitation. Required another dose this afternoon. 1 to 1 ordered. -Baseline mental status at this time, though having confusion. -blood culture negative x 24 hours. Atrial fibrillation with RVR -Cardiology consulted: -Continue diltiazem infusion. Add oral metoprolol to titrate off diltiazem drip. -Continue with volume repletion and anticoagulation. -ECHO showed EF 55-60, mild concentric LVH, mild AR, moderately dilated LA and RA, moderate to severe TR, RVSP elevated at 30-40mmHg. -Given a total of 1 L normal saline. -Started on metoprolol titrate 25mg BID. Will plan titrate off diltiazem. -Continue Eliquis 2.5 mg twice daily. Elevated troponin -Troponin of 34.4 on admission, repeat of 29.5. -Mild elevation, no indication of ACS at this time per cardiology. -Cardiology following. COVID-19 infection -Chest x-ray negative. -EMS reports that she was 84% on room air when initially seen -She has improved to 96% on room air. -Hold treatment at this time due to lack of pulmonary symptoms, and concern regarding possibly aggravating current confusion Discharge Plan Discharge Items Reason For Visit: ATRIAL FIB RVR, COVID-19, CONFUSION Condition on Discharge: Fair Follow-up/Referrals: PCP,NO [Primary Care Provider] - Medications and DC Order Prescriptions: No Action buspirone 5 mg tablet 5 mg PO Q8H PRN (Reason: Anxiety) acetaminophen [Tylenol] 325 mg Tablet 650 mg PO Q6H PRN (Reason: pain or fever) venlafaxine 150 mg capsule,extended release 24hr 150 mg PO DAILY pantoprazole 20 mg tablet,delayed release (DR/EC) 20 mg PO DAILY ropinirole [Requip] 4 mg Tablet 2 mg PO BID Rx Instructions: At 1300 and 2000 Eliquis 2.5 mg tablet 2.5 mg PO DAILY Admission Data Admit Date/Time: 08/17/23 12:55 Attending Provider: Gracia Benson Admit Provider: Stefano Arriaga Primary Care Provider: PCP,NO Other Providers: Stefano Arriaga; Jose Kaplan
[2023-08-19] MEDS: VENLAFAXINE HCL XR 150 MG CAPXR PO SCH (08:28)
[2023-08-19] MEDS: PANTOprazole 40 MG TAB PO SCH (08:28)
[2023-08-19] MEDS: APIXABAN 2.5 MG TAB PO SCH ×2 (08:29→19:49)
[2023-08-19] MEDS: METOPROLOL TARTRATE 25 MG TAB PO SCH (08:29)
[2023-08-19] MEDS: rOPINIRole HCL 2 MG TABLET PO SCH ×2 (08:29→19:49)
--- NOTE | 2023-08-19 09:35 | Hospitalist Progress Note ---
Date of Service August 19, 2023 Assessment & Plan (1) Confusion and disorientation: (2) COVID-19: (3) Atrial fibrillation with rapid ventricular response: (4) Weakness: (5) Dementia: (6) Hyperlipidemia: (7) Asthma: (8) Thoracic aortic ectasia: (9) CAD (coronary artery disease): (10) GERD (gastroesophageal reflux disease): (11) Neuropathy: (12) Restless leg syndrome: (13) Hypoxia: (14) Elevated troponin: Plan The patient is an 87-year-old female with a past medical history including CAD, atrial fibrillation on Eliquis, hyperlipidemia, thoracic aortic ectasia, GERD, neuropathy, thrombocytopenia, restless leg syndrome, dementia, anxiety, and asthma who was admitted to the hospital for worsening confusion and hypoxia. Confusion and disorientation -multiple etiologies; COVID-19 infection, A-fib with RVR, dehydration, and aggravation of underlying dementia. -Head CT negative -Requiring Zyprexa as needed for agitation. -1 to 1 ordered. -Baseline mental status at this time, though having confusion. -blood culture negative -PT/OT ordered and states that patient requires assistance with all ADLs and functional mobility at this time. -Case management consulted, may be able to receive physical therapy at the [place], case management following. Atrial fibrillation with RVR -Cardiology consulted: -Diltiazem infusion DC'ed, transition to metoprolol titrate. -Continue with volume repletion and anticoagulation. -ECHO showed EF 55-60, mild concentric LVH, mild AR, moderately dilated LA and RA, moderate to severe TR, RVSP elevated at 30-40mmHg. -Given a total of 1 L normal saline. -Currently in normal sinus rhythm. Continue metoprolol titrate 25mg TID, and titrate up if needed. Should consider switching to metoprolol succinate at time of discharge. -Continue Eliquis 2.5 mg twice daily. Elevated troponin -Troponin of 34.4 on admission, repeat of 29.5. -Mild elevation, no indication of ACS at this time per cardiology. COVID-19 infection -Chest x-ray negative. -EMS reports that she was 84% on room air when initially seen -She has improved to 96% on room air. -Hold treatment at this time due to lack of pulmonary symptoms, and concern regarding possibly aggravating current confusion Admission and Anticipated Discharge Date Admission Date: August 17, 2023 Supervising Physician Co-Signing Physician Notes I personally examined the patient and verified banda points of history and exam, discussed case, and agree with decision making and plan documented by Dr. Perez. Patient remains in NSR, rates have been controlled with oral metoprolol, will continue apixaban. Patient remains confused and disoriented, intermittently agitated, 1:1 at bedside. COVID-19 infection with minimal symptoms, lungs with slight crackles at bases bilaterally, no oxygen requirement at present, continue to monitor. Dispo is for patient to return to the [place], she will likely require rehabilitation prior, case management aware and working on referrals. Subjective Patient seen beside this AM. She is AnOx 1 (self only), she states that she feels good and "wonderful". Has no issues or concerns. Review of Systems Review of Systems: All systems reviewed & are unremarkable except as noted in Subjective Physical Exam Physical Exam: Constitutional: well-appearing, no acute distress, AnOx 1 (self only), pleasant though confused HEENT: NCAT, no conjunctival injection CV: regular rhythm, no murmur appreciated, extremities well-perfused, no LE edema Resp: CTABL, no wheezes/rales/rhonchi appreciated, no increased work of breathing GI: soft, nondistended, nontender, BS normoactive MSK: no gross deformities appreciated Skin: warm, dry, no rash appreciated Neuro: no focal neurologic deficit appreciated, confused Results & Data Results & Data Vital Signs (Past 12 Hours) Vital Signs Temp Pulse Pulse Resp BP Pulse Ox O2 Del Method 08/19/23 07:03 36.7 C 81 18 175/95 H 84 L Room Air 08/19/23 03:21 36.1 C L 63 18 172/91 H 93 Room Air 08/18/23 23:00 57 L 08/18/23 22:56 36.3 C L 66 18 172/91 H 91 Room Air Resident Activity Tracking Resident Involvement: Resident Care Provided Care Provided: Adult Hospital Medicine
[2023-08-19] MEDS ORDERED: METOPROLOL TARTRATE 25 MG TAB PO SCH (15:00)
[2023-08-19] MEDS: ACETAMINOPHEN 325 MG TAB PO PRN (19:48)
[2023-08-20] MEDS ORDERED: METOPROLOL TARTRATE 1 MG/ML VIAL IV STA ×2 (05:26→05:52)
[2023-08-20] MEDS ORDERED: METOPROLOL TARTRATE 1 MG/ML VIAL IV ONE (05:30)
--- NOTE | 2023-08-20 07:06 | Hospitalist Progress Note ---
Date of Service August 20, 2023 Assessment & Plan (1) Confusion and disorientation: (2) COVID-19: (3) Atrial fibrillation with rapid ventricular response: (4) Weakness: (5) Dementia: (6) Hyperlipidemia: (7) Asthma: (8) Thoracic aortic ectasia: (9) CAD (coronary artery disease): (10) GERD (gastroesophageal reflux disease): (11) Neuropathy: (12) Restless leg syndrome: (13) Hypoxia: (14) Elevated troponin: Plan The patient is an 87-year-old female with a past medical history including CAD, atrial fibrillation on Eliquis, hyperlipidemia, thoracic aortic ectasia, GERD, neuropathy, thrombocytopenia, restless leg syndrome, dementia, anxiety, and asthma who was admitted to the hospital for worsening confusion and hypoxia. Confusion and disorientation -multiple etiologies; COVID-19 infection, A-fib with RVR, dehydration, and aggravation of underlying dementia. -Head CT negative -Requiring Zyprexa as needed for agitation. -1 to 1 as needed per nursing discretion -Baseline mental status at this time, though having confusion. -blood culture negative -PT/OT ordered and states that patient requires assistance with all ADLs and functional mobility at this time. -Case management consulted, may be able to receive physical therapy at the [place], case management following. Atrial fibrillation with RVR -Cardiology consulted: -Diltiazem infusion DC'ed, transition to metoprolol titrate. -Continue with volume repletion and anticoagulation. -ECHO showed EF 55-60, mild concentric LVH, mild AR, moderately dilated LA and RA, moderate to severe TR, RVSP elevated at 30-40mmHg. -Given a total of 1 L normal saline. -Returned to Afib RVR overnight, received Lopressor IV twice this morning. Rates in 120s this afternoon -Switch to Metoprolol Tartrate 50mg BID -Continue Eliquis 2.5 mg twice daily. Elevated troponin -Troponin of 34.4 on admission, repeat of 29.5. -Mild elevation, no indication of ACS at this time per cardiology. COVID-19 infection -Chest x-ray negative. -EMS reports that she was 84% on room air when initially seen -She has improved to 96% on room air. -Hold treatment at this time due to lack of pulmonary symptoms, and concern regarding possibly aggravating current confusion Admission and Anticipated Discharge Date Admission Date: August 17, 2023 Supervising Physician Co-Signing Physician Notes I personally examined the patient and verified all banda points of history and exam, discussed case, and agree with decision making with Dr Savage Sleeping comfortably. No new issues identified. Later in the day, rate control improving. Vitals noted, in general she is in no distress. Breathing unlabored no accessory muscle use good effort. Heart rates 120s around the time I see her, fortunately later slowed to the 80s. A-fib/RVRescalating beta-blockerrate control improving. Anticoagulated. Otherwise as above. Subjective Patient seen and examined at bedside. 1:1 is present with patient. Patient states her throat is sore today which makes it painful to eat/swallow. She denies chest pain or shortness of breath. Review of Systems Review of Systems: As per above Physical Exam Constitutional: comfortable; no acute distress Eyes: + anicteric sclerae; no conjunctival abn ormality ENMT: Ears: no external ear abnormality Nose: no external nose abnormality Respiratory: normal respiratory effort; does not use accessory muscles Good aeration bilaterally Cardiovascular: Rate/Rhythm: + tachycardic and + irregularly irregular Extremities: no edema Gastrointestinal (Abdomen): Percussion/Palpation: abdomen soft; abdomen nontender and no guarding Skin: no rashes, warm and dry Psychiatric: Orientation: oriented to person Results & Data Results & Data Vital Signs (Past 12 Hours) Vital Signs Temp Pulse Pulse Pulse Resp BP BP 08/20/23 06:37 128 H 133/84 08/20/23 06:00 123 H 108/67 08/20/23 05:48 169 H 136/76 08/20/23 05:44 169 H 136/76 08/20/23 05:25 167 H 178/83 H 08/20/23 02:33 36.4 C L 62 15 160/80 H 08/19/23 22:27 36.5 C 75 17 135/93 08/19/23 21:00 Pulse Ox O2 Del Method 08/20/23 06:37 08/20/23 06:00 08/20/23 05:48 08/20/23 05:44 08/20/23 05:25 08/20/23 02:33 93 Room Air 08/19/23 22:27 98 Room Air 08/19/23 21:00 Room Air Resident Activity Tracking Resident Involvement: Resident Care Provided Care Provided: Adult Hospital Medicine
[2023-08-20 08:04] LABS: Basophils # (auto) 0.01 K/uL (0.00-0.20); Basophils % (auto) 0.1 %; Hematocrit (blood only) 47.1 % (37.0-47.0); Hemoglobin 15.3 g/dl (12.0-16.0); Immature Granulocytes # (auto) 0.04 K/uL (0.01-0.20); Immature Granulocytes % (auto) 0.4 %; Lymphocytes # (auto) 0.96 K/uL (1.20-3.40); Lymphocytes % (auto) 10.7 %; Mean Corpuscular Hemoglobin 28.8 pg (25.0-34.0); Mean Corpuscular Hgb Conc 32.5 g/dL (32.0-36.0); Mean Corpuscular Volume 88.5 fL (80.0-100.0); Mean Platelet Volume 11.6 fL (9.4-12.4); Monocytes # (auto) 0.78 K/uL (0.11-0.59); Monocytes % (auto) 8.7 %; Neutrophils # (auto) 7.22 K/uL (1.40-6.50); Neutrophils % (auto) 80.1 %; Platelet Count 117 K/uL (130-400); RDW Coefficient of Variation 14.6 % (11.5-14.5); RDW Standard Deviation 46.3 fL (36.4-46.3); Red Blood Count 5.32 M/uL (4.20-5.40); White Blood Count 9.01 K/ul (4.8-10.8)
[2023-08-20 08:15] LABS: Albumin Globulin Ratio 1.3 (0.9-2); Albumin Level 3.6 gm/dl (3.4-5.0); BUN Creatinine Ratio 22.9 (10-20); Bilirubin,Total 1.2 mg/dl (0.2-1.0); Est GFR (African American) 62.1 ml/min; Est GFR (Non-African American) 53.6 ml/min; Globulin 2.7 gm/dl (2.5-4.0); Magnesium 1.8 mg/dl (1.7-2.4); Potassium 4.2 mmol/L (3.5-5.1); Total Protein 6.3 gm/dl (6.0-8.3)
[2023-08-20] MEDS: PANTOprazole 40 MG TAB PO SCH (08:36)
[2023-08-20] MEDS: rOPINIRole HCL 2 MG TABLET PO SCH ×2 (08:36→21:25)
[2023-08-20] MEDS: APIXABAN 2.5 MG TAB PO SCH ×2 (08:36→21:25)
[2023-08-20] MEDS: VENLAFAXINE HCL XR 150 MG CAPXR PO SCH (08:37)
[2023-08-20] MEDS ORDERED: METOPROLOL TARTRATE 25 MG TAB PO SCH (09:00)
[2023-08-20] MEDS: MAGNESIUM SULFATE / D5W 1 GM/100 ML BAG IV SCH ×2 (09:27→11:09)
[2023-08-20] MEDS: CHLORASEPTIC (PHENOL) 1.4% SOLN 180 ML BTL MT PRN ×2 (11:09→21:33)
[2023-08-20] MEDS ORDERED: METOPROLOL TARTRATE 25 MG TAB PO ONE (14:41)
--- NOTE | 2023-08-20 14:45 | Electrocardiogram Report ---
Test Reason : Blood Pressure : / mmHG Vent. Rate : 171 BPM Atrial Rate : 170 BPM P-R Int : 000 ms QRS Dur : 072 ms QT Int : 266 ms P-R-T Axes : 000 -28 256 degrees QTc Int : 448 ms Poor data quality, interpretation may be adversely affected Atrial fibrillation with rapid ventricular response Diffuse Nonspecific ST abnormality Abnormal ECG When compared with ECG of 17-AUG-2023 11:21, No significant change Confirmed by Elias Oliveira ([id number]) on 08/20/2023 2:45:07 PM Referred By: REFERRED SELF Confirmed By:Elias Oliveira
--- NOTE | 2023-08-20 17:45 | Billing Data ---
Date of Service August 20, 2023 Coding Level of Care Code 37729 SUB INP/OBS CARE
[2023-08-20] MEDS: METOPROLOL TARTRATE 50 MG TAB PO SCH (21:25)
[2023-08-21] MEDS ORDERED: METOPROLOL TARTRATE 1 MG/ML VIAL IV STA (04:18)
[2023-08-21] MEDS: CHLORASEPTIC (PHENOL) 1.4% SOLN 180 ML BTL MT PRN ×2 (04:37→08:29)
--- NOTE | 2023-08-21 07:26 | Hospitalist Progress Note ---
Date of Service August 21, 2023 Assessment & Plan (1) Confusion and disorientation: (2) COVID-19: (3) Atrial fibrillation with rapid ventricular response: (4) Weakness: (5) Dementia: (6) Hyperlipidemia: (7) Asthma: (8) Thoracic aortic ectasia: (9) CAD (coronary artery disease): (10) GERD (gastroesophageal reflux disease): (11) Neuropathy: (12) Restless leg syndrome: (13) Hypoxia: (14) Elevated troponin: Plan The patient is an 87-year-old female with a past medical history including CAD, atrial fibrillation on Eliquis, hyperlipidemia, thoracic aortic ectasia, GERD, neuropathy, thrombocytopenia, restless leg syndrome, dementia, anxiety, and asthma who was admitted to the hospital for worsening confusion and hypoxia. Confusion and disorientation -multiple etiologies; COVID-19 infection, A-fib with RVR, dehydration, and aggravation of underlying dementia. -Head CT negative -Requiring Zyprexa as needed for agitation. -1 to 1 as needed per nursing discretion -Baseline mental status at this time, though having confusion. -Blood culture negative -PT/OT ordered and states that patient requires assistance with all ADLs and functional mobility at this time. -Case management consulted, may be able to receive physical therapy at the [facility], case management following. Atrial fibrillation with RVR -Cardiology consulted: -Diltiazem infusion DC'ed, transitioned to metoprolol tartrate. -Continue with volume repletion and anticoagulation. -ECHO showed EF 55-60, mild concentric LVH, mild AR, moderately dilated LA and RA, moderate to severe TR, RVSP elevated at 30-40mmHg. -Given a total of 1 L normal saline. -Returned to sinus rhythm this afternoon -Continue Metoprolol Tartrate 75mg BID -Continue Eliquis 2.5 mg twice daily. Elevated troponin -Troponin of 34.4 on admission, repeat of 29.5. -Mild elevation, no indication of ACS at this time per cardiology. COVID-19 infection -Chest x-ray negative. -EMS reports that she was 84% on room air when initially seen -She has improved to 96% on room air. -Hold treatment at this time due to lack of pulmonary symptoms, and concern regarding possibly aggravating current confusion Admission and Anticipated Discharge Date Admission Date: August 17, 2023 Supervising Physician Co-Signing Physician Notes I personally examined the patient and verified all banda points of history and exam, discussed case, and agree with decision making with Dr Savage Feels pretty good overall. Just a sore throat. No chest pain/pressure. Heart rates are improving. Vitals noted, in general she is awake and alert pleasant no distress. Cardio is tachycardic and irregularly irregular. Breathing unlabored no accessory muscle use good effort. Skin without rashes pallor or icterus. No focal neurologic deficits A-fib/RVRescalating beta-cristo (today up to 75 mg twice daily)rate control improving. Anticoagulated. Otherwise as above. Subjective Patient seen and examined at bedside. HR elevated back to 120s early this morning, received another dose of Lopressor. Remains asymptomatic, just notes a sore throat. Review of Systems Review of Systems: As per above Physical Exam Constitutional: comfortable; no acute distress Eyes: + anicteric sclerae; no conjunctival abn ormality ENMT: Ears: no external ear abnormality Nose: no external nose abnormality Respiratory: normal respiratory effort; does not use accessory muscles Cardiovascular: Rate/Rhythm: + tachycardic and + irregularly irregular Extremities: no edema Gastrointestinal (Abdomen): Percussion/Palpation: abdomen soft; abdomen nontender and no guarding Skin: no rashes, warm and dry Psychiatric: Orientation: oriented to person Results & Data Results & Data Vital Signs (Past 12 Hours) Vital Signs Temp Pulse Pulse Pulse Resp BP BP 08/21/23 06:15 121 H 18 111/61 08/21/23 04:47 124 H 94/55 L 08/21/23 04:33 134 H 138/88 08/21/23 03:00 36.5 C 121 H 21 121/81 08/21/23 01:15 112 H 08/20/23 22:53 37.1 C 131 H 19 96/61 L Pulse Ox O2 Del Method 08/21/23 06:15 08/21/23 04:47 08/21/23 04:33 08/21/23 03:00 95 Room Air 08/21/23 01:15 08/20/23 22:53 95 Room Air Resident Activity Tracking Resident Involvement: Resident Care Provided Care Provided: Adult Hospital Medicine
[2023-08-21 07:51] LABS: Basophils # (auto) 0.01 K/uL (0.00-0.20); Basophils % (auto) 0.1 %; Hematocrit (blood only) 46.1 % (37.0-47.0); Hemoglobin 14.6 g/dl (12.0-16.0); Immature Granulocytes # (auto) 0.04 K/uL (0.01-0.20); Immature Granulocytes % (auto) 0.5 %; Lymphocytes # (auto) 1.59 K/uL (1.20-3.40); Lymphocytes % (auto) 18.9 %; Mean Corpuscular Hemoglobin 28.6 pg (25.0-34.0); Mean Corpuscular Hgb Conc 31.7 g/dL (32.0-36.0); Mean Corpuscular Volume 90.2 fL (80.0-100.0); Mean Platelet Volume 11.6 fL (9.4-12.4); Monocytes # (auto) 0.73 K/uL (0.11-0.59); Monocytes % (auto) 8.7 %; Neutrophils # (auto) 6.04 K/uL (1.40-6.50); Neutrophils % (auto) 71.8 %; Platelet Count 102 K/uL (130-400); RDW Coefficient of Variation 14.7 % (11.5-14.5); RDW Standard Deviation 48.4 fL (36.4-46.3); Red Blood Count 5.11 M/uL (4.20-5.40); White Blood Count 8.41 K/ul (4.8-10.8)
[2023-08-21 07:57] LABS: BUN Creatinine Ratio 23.5 (10-20); Calcium 8.8 mg/dl (8.6-10.3); Creatinine Clr Calc Pharmacy 29.2 ml/min; Est GFR (African American) 49.9 ml/min; Magnesium 2.2 mg/dl (1.7-2.4); Potassium 4.3 mmol/L (3.5-5.1)
[2023-08-21] MEDS: rOPINIRole HCL 2 MG TABLET PO SCH ×2 (08:30→20:26)
[2023-08-21] MEDS: APIXABAN 2.5 MG TAB PO SCH ×2 (08:30→20:27)
[2023-08-21] MEDS: VENLAFAXINE HCL XR 150 MG CAPXR PO SCH (08:30)
[2023-08-21] MEDS: METOPROLOL TARTRATE 50 MG TAB PO SCH (08:30)
[2023-08-21] MEDS: PANTOprazole 40 MG TAB PO SCH (08:30)
[2023-08-21] MEDS: METOPROLOL TARTRATE 25 MG TAB PO SCH ×2 (08:33→20:27)
--- NOTE | 2023-08-21 12:09 | Billing Data ---
Date of Service August 21, 2023 Coding Level of Care Code 02671 SUB INP/OBS CARE
--- NOTE | 2023-08-22 06:59 | Hospitalist Progress Note ---
Date of Service August 22, 2023 Assessment & Plan (1) Confusion and disorientation: (2) COVID-19: (3) Atrial fibrillation with rapid ventricular response: (4) Weakness: (5) Dementia: (6) Hyperlipidemia: (7) Asthma: (8) Thoracic aortic ectasia: (9) CAD (coronary artery disease): (10) GERD (gastroesophageal reflux disease): (11) Neuropathy: (12) Restless leg syndrome: (13) Hypoxia: (14) Elevated troponin: Plan The patient is an 87-year-old female with a past medical history including CAD, atrial fibrillation on Eliquis, hyperlipidemia, thoracic aortic ectasia, GERD, neuropathy, thrombocytopenia, restless leg syndrome, dementia, anxiety, and asthma who was admitted to the hospital for worsening confusion and hypoxia. Confusion and disorientation -multiple etiologies; COVID-19 infection, A-fib with RVR, dehydration, and aggravation of underlying dementia. -Head CT negative -Requiring Zyprexa as needed for agitation. -1 to 1 as needed per nursing discretion -Baseline mental status at this time, though having confusion. -Blood culture negative -PT/OT ordered and states that patient requires assistance with all ADLs and functional mobility at this time. -Case management consulted, may be able to receive physical therapy at the [facility], case management following. Atrial fibrillation with RVR -Cardiology consulted: -Diltiazem infusion DC'ed, transitioned to metoprolol tartrate. -Continue with volume repletion and anticoagulation. -ECHO showed EF 55-60, mild concentric LVH, mild AR, moderately dilated LA and RA, moderate to severe TR, RVSP elevated at 30-40mmHg. -Given a total of 1 L normal saline. -Returned to sinus rhythm yesterday -Continue Metoprolol Tartrate 75mg BID -Continue Eliquis 2.5 mg twice daily. Elevated troponin -Troponin of 34.4 on admission, repeat of 29.5. -Mild elevation, no indication of ACS at this time per cardiology. COVID-19 infection -Chest x-ray negative -EMS reports that she was 84% on room air when initially seen -Has been on room air for several days and has no respiratory symptoms at present * Patient awaiting placement at SNF Admission and Anticipated Discharge Date Admission Date: August 17, 2023 Supervising Physician Co-Signing Physician Notes I personally examined the patient and verified all banda points of history and exam, discussed case, and agree with decision making with Dr Savage Feeling pretty good overall. Awaiting placement. Discussed atrial fibrillationshe expressed understanding.. Vitals noted, in general she is awake and alert pleasant no distress. Breathing unlabored no accessory muscle use good effort. Skin without rashes pallor or icterus. Neuro without focal deficits. A-fib/RVRescalating beta-cristo (today up to 75 mg twice daily)rate controlled. Anticoagulated. Otherwise as above. Delirium/metabolic encephalopathypresent on admission, seems to be improving quite nicely overallprobably from the infection/hospitalization/the entire milieu. Subjective Patient seen and examined at bedside. No acute events reported overnight. Has been in sinus rhythm for nearly 24 hours. Patient is seated upright in recliner and eating breakfast- notes that she does not have much of an appetite but is trying to eat more. Review of Systems Review of Systems: As per above Physical Exam Constitutional: comfortable; no acute distress Eyes: + anicteric sclerae; no conjunctival abn ormality ENMT: Ears: no external ear abnormality Nose: no external nose abnormality Respiratory: normal respiratory effort; does not use accessory muscles Cardiovascular: Rate/Rhythm: regular rate and regular rhythm Extremities: no edema Gastrointestinal (Abdomen): Percussion/Palpation: abdomen soft; abdomen no ntender and no guarding Skin: no rashes, warm and dry Psychiatric: Orientation: oriented to person Results & Data Results & Data Vital Signs (Past 12 Hours) Vital Signs Temp Pulse Pulse Pulse Resp BP Pulse Ox 08/22/23 03:00 36.3 C L 60 16 123/70 95 08/21/23 22:48 36.4 C L 54 L 14 107/62 94 08/21/23 22:02 56 L 08/21/23 20:23 74 129/84 08/21/23 19:00 36.4 C L 79 18 109/72 95 O2 Del Method 08/22/23 03:00 Room Air 08/21/23 22:48 Room Air 08/21/23 22:02 08/21/23 20:23 08/21/23 19:00 Room Air Resident Activity Tracking Resident Involvement: Resident Care Provided Care Provided: Adult Hospital Medicine
[2023-08-22 07:47] LABS: Hematocrit (blood only) 40.9 % (37.0-47.0); Hemoglobin 13.7 g/dl (12.0-16.0); Immature Granulocytes # (auto) 0.08 K/uL (0.01-0.20); Immature Granulocytes % (auto) 0.9 %; Lymphocytes # (auto) 1.14 K/uL (1.20-3.40); Lymphocytes % (auto) 13.1 %; Mean Corpuscular Hemoglobin 28.8 pg (25.0-34.0); Mean Corpuscular Hgb Conc 33.5 g/dL (32.0-36.0); Mean Corpuscular Volume 86.1 fL (80.0-100.0); Mean Platelet Volume 11.9 fL (9.4-12.4); Monocytes # (auto) 0.76 K/uL (0.11-0.59); Monocytes % (auto) 8.8 %; Neutrophils % (auto) 77.2 %; Platelet Count 159 K/uL (130-400); RDW Coefficient of Variation 14.6 % (11.5-14.5); RDW Standard Deviation 45.8 fL (36.4-46.3); Red Blood Count 4.75 M/uL (4.20-5.40); White Blood Count 8.68 K/ul (4.8-10.8)
[2023-08-22 08:03] LABS: BUN Creatinine Ratio 35.3 (10-20); Calcium 8.6 mg/dl (8.6-10.3); Est GFR (African American) 71.9 ml/min; Magnesium 1.8 mg/dl (1.7-2.4); Potassium 3.9 mmol/L (3.5-5.1)
[2023-08-22] MEDS: METOPROLOL TARTRATE 25 MG TAB PO SCH ×2 (09:27→20:56)
[2023-08-22] MEDS: APIXABAN 2.5 MG TAB PO SCH ×2 (09:28→20:54)
[2023-08-22] MEDS: rOPINIRole HCL 2 MG TABLET PO SCH ×2 (09:28→20:54)
[2023-08-22] MEDS: VENLAFAXINE HCL XR 150 MG CAPXR PO SCH (09:29)
[2023-08-22] MEDS: PANTOprazole 40 MG TAB PO SCH (09:29)
--- NOTE | 2023-08-22 15:00 | Billing Data ---
Date of Service August 22, 2023 Coding Level of Care Code 26444 SUB INP/OBS CARE
--- NOTE | 2023-08-23 07:52 | Hospitalist Progress Note ---
Date of Service August 23, 2023 Assessment & Plan (1) Confusion and disorientation: (2) COVID-19: (3) Atrial fibrillation with rapid ventricular response: (4) Weakness: (5) Dementia: (6) Hyperlipidemia: (7) Asthma: (8) Thoracic aortic ectasia: (9) CAD (coronary artery disease): (10) GERD (gastroesophageal reflux disease): (11) Neuropathy: (12) Restless leg syndrome: (13) Hypoxia: (14) Elevated troponin: Plan The patient is an 87-year-old female with a past medical history including CAD, atrial fibrillation on Eliquis, hyperlipidemia, thoracic aortic ectasia, GERD, neuropathy, thrombocytopenia, restless leg syndrome, dementia, anxiety, and asthma who was admitted to the hospital for worsening confusion and hypoxia. Confusion and disorientation -multiple etiologies; COVID-19 infection, A-fib with RVR, dehydration, and aggravation of underlying dementia. -Head CT negative -Requiring Zyprexa as needed for agitation. -1 to 1 as needed per nursing discretion -Baseline mental status at this time, though having confusion. -Blood culture negative -PT/OT ordered and states that patient requires assistance with all ADLs and functional mobility at this time. -Case management consulted, may be able to receive physical therapy at the [facility], case management following. Atrial fibrillation with RVR -Cardiology consulted: -Diltiazem infusion DC'ed, transitioned to metoprolol tartrate. -Continue with volume repletion and anticoagulation. -ECHO showed EF 55-60, mild concentric LVH, mild AR, moderately dilated LA and RA, moderate to severe TR, RVSP elevated at 30-40mmHg. -Given a total of 1 L normal saline. -Returned to sinus rhythm yesterday -Continue Metoprolol Tartrate 75mg BID -Continue Eliquis 2.5 mg twice daily. Elevated troponin -Troponin of 34.4 on admission, repeat of 29.5. -Mild elevation, no indication of ACS at this time per cardiology. COVID-19 infection -Chest x-ray negative -EMS reports that she was 84% on room air when initially seen -Has been on room air for several days and has no respiratory symptoms at present * Patient awaiting placement at SNF Admission and Anticipated Discharge Date Admission Date: August 17, 2023 Review of Systems Review of Systems: As per above Physical Exam Constitutional: comfortable; no acute distress Eyes: + anicteric sclerae; no conjunctival abn ormality ENMT: Ears: no external ear abnormality Nose: no external nose abnormality Respiratory: normal respiratory effort; does not use accessory muscles Cardiovascular: Rate/Rhythm: regular rate, regular rhythm and + tachycardic Extremities: no edema Gastrointestinal (Abdomen): Percussion/Palpation: abdomen soft; abdomen nontender and no guarding Skin: no rashes, warm and dry Psychiatric: Orientation: oriented to person Results & Data Results & Data Vital Signs (Past 12 Hours) Vital Signs Temp Pulse Resp BP Pulse Ox O2 Del Method 08/23/23 07:16 36.7 C 65 18 165/97 H 95 Room Air 08/22/23 20:54 Room Air Resident Activity Tracking Resident Involvement: Resident Care Provided Care Provided: Adult Hospital Medicine
[2023-08-23 08:31] LABS: Hematocrit (blood only) 41.6 % (37.0-47.0); Hemoglobin 14.1 g/dl (12.0-16.0); Immature Granulocytes # (auto) 0.04 K/uL (0.01-0.20); Immature Granulocytes % (auto) 0.7 %; Lymphocytes % (auto) 18.3 %; Mean Corpuscular Hemoglobin 29.1 pg (25.0-34.0); Mean Corpuscular Hgb Conc 33.9 g/dL (32.0-36.0); Mean Platelet Volume 11.5 fL (9.4-12.4); Monocytes # (auto) 0.59 K/uL (0.11-0.59); Monocytes % (auto) 9.8 %; Neutrophils # (auto) 4.28 K/uL (1.40-6.50); Neutrophils % (auto) 71.2 %; Platelet Count 157 K/uL (130-400); RDW Coefficient of Variation 14.4 % (11.5-14.5); RDW Standard Deviation 44.8 fL (36.4-46.3); Red Blood Count 4.84 M/uL (4.20-5.40); White Blood Count 6.01 K/ul (4.8-10.8)
[2023-08-23] MEDS: rOPINIRole HCL 2 MG TABLET PO SCH (08:45)
[2023-08-23] MEDS: APIXABAN 2.5 MG TAB PO SCH (08:46)
[2023-08-23 08:48] LABS: BUN Creatinine Ratio 30.4 (10-20); Calcium 8.7 mg/dl (8.6-10.3); Creatinine Clr Calc Pharmacy 44.9 ml/min; Est GFR (African American) 91.4 ml/min; Est GFR (Non-African American) 78.8 ml/min; Magnesium 1.7 mg/dl (1.7-2.4); Potassium 3.9 mmol/L (3.5-5.1)
[2023-08-23] MEDS: METOPROLOL TARTRATE 25 MG TAB PO SCH (08:48)
[2023-08-23] MEDS: VENLAFAXINE HCL XR 150 MG CAPXR PO SCH (10:02)
[2023-08-23] MEDS: PANTOprazole 40 MG TAB PO SCH (10:02)
--- NOTE | 2023-08-23 16:42 | Discharge Summary ---
Date of Service August 23, 2023 Admission HPI Per Admitting Provider Confusion and disorientation- Multiple likely contributing factors including but not limited to: Aggravation of underlying dementia, COVID-19 infection, atrial fibrillation with RVR, dehydration Atrial fibrillation with RVR/A-fib history/elevated troponin- The patient will be admitted to telemetry for serial cardiac enzymes, serial EKG's, cardiac rhythm monitoring and a 2-D echocardiogram with Dopplers. Given diltiazem 10 mg IV followed by diltiazem drip with titration protocol, and will continue She was also given metoprolol succinate 25 mg p.o. by ED Troponin on admission was 34.4, follow serially, but likely secondary to A-fib with RVR Status post normal saline 500 mL bolus Give additional normal saline at 80 mL/h for additional 500 mL Continue apixaban COVID-19 infection- unclear length of time that she has had the infection EMS reports that she was 84% on room air when initially seen She has improved to 94% on room air Hold treatment at this time due to lack of pulmonary symptoms, and concern re garding possibly aggravating current confusion Admission Exam Per Admitting Provider The patient is awake, very confused, oftentimes repeating the same question, normocephalic and atraumatic, lying in bed and in no acute distress. HEENT--PERRL, EOMI, mucous membranes and oropharynx mildly dry. Neck--supple. No JVD. No bruits. Thyroid normal, trachea midline, no adenopathy. Heart--normal S1 and S2. No murmurs, rubs or gallops. Lungs--clear bilaterally, no respiratory distress, no accessory muscle use. Abdomen--normal bowel sounds and soft. Nontender. Nondistended Dermatologic--normal skin turgor, normal color, Neurologic--cranial nerves II through XII grossly intact. Rheumatologic--normal range of motion. Psychiatric--very confused Principal Diagnosis confusion, afib with RVR Discharge Exam Constitutional WD/WN, vitals as above Eyes + anicteric sclerae; no conjunctival abnormality ENMT Ears: no external ear abnormality Nose: no external nose abnormality Moist mucous membranes Respiratory normal respiratory effort, lungs clear to auscultation Cardiovascular Limbs well perfused. Normal rate and rhythm. No lower extremity edema Skin no rashes, warm and dry Psychiatric Alert, oriented to self. No acute distress Discharge Data Allergies Allergy/AdvReac Type Severity Reaction Status Date / Time aspirin Allergy Severe Hives Unverified 08/17/23 12:24 Consultations 08/17/23 11:58 ED Decision to Admit Stat 08/17/23 14:36 Consult Cardiology Routine Ordered Studies 08/17/23 12:49 CT head/brain wo con Stat Chest X-Ray 08/17/23 10:19 XR chest 1V not portable CLINICAL HISTORY: Dyspnea TECHNIQUE: Single frontal radiograph of the chest was obtained. Comparison: None available at the time of this dictation. FINDINGS: No lines and tubes are seen. Cardiomegaly is noted. The aortic arch is calcified. The lungs are clear. No evidence of pleural effusion or pneumothorax. IMPRESSION: No acute abnormalities and in particular no radiographic evidence of pneumonia. ACT 112: Negative or not required by law. Electronically signed by: Shin Thao M.D. 08/17/2023 10:[address] 08/17/23 12:49 CT SCAN OF THE BRAIN WITHOUT IV CONTRAST CLINICAL HISTORY: Change in mental status. COMPARISON STUDY: No priors. TECHNIQUE: Unenhanced axial CT scan of the brain is performed from the vertex to the skull base. A dose lowering technique was utilized adhering to the principles of ALARA. CT DOSE: 547.75 mGy.cm FINDINGS: Brain parenchyma: There is age-related involutional change noting moderate confluent subcortical and periventricular microangiopathic disease. There is no hemorrhage, mass effect, or evidence of acute territorial ischemia by CT criteria. 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 Leon- white matter differentiation is preserved. No extra-axial fluid collection is seen. Ventricles, sulci, cisterns: Prominent secondary to involutional change. Intracranial vasculature: There is atherosclerotic calcification of the cavernous carotid and vertebral arteries. Calvarium: Unremarkable. Sinuses and mastoids: There is an air-fluid level in the right maxillary antrum. Trace mucosal thickening is noted in the ethmoid, left frontal, sphenoid, and left maxillary sinuses. The mastoid air cells are well pneumatized. Orbits: The bony orbits are grossly intact. There are bilateral ocular lens implants. IMPRESSION: There is no hemorrhage, mass effect, or evidence of acute territorial ischemia by CT criteria. ACT 112: Negative or not required by law. Electronically signed by: Angel Brock M.D. 08/17/2023 2:16 PM Hospital Course (1) Confusion and disorientation: (2) COVID-19: (3) Atrial fibrillation with rapid ventricular response: (4) Weakness: (5) Dementia: (6) Hyperlipidemia: (7) Asthma: (8) Thoracic aortic ectasia: (9) CAD (coronary artery disease): (10) GERD (gastroesophageal reflux disease): (11) Neuropathy: (12) Restless leg syndrome: (13) Hypoxia: (14) Elevated troponin: Plan The patient is an 87-year-old female with a past medical history including CAD, atrial fibrillation on Eliquis, hyperlipidemia, thoracic aortic ectasia, GERD, neuropathy, thrombocytopenia, restless leg syndrome, dementia, anxiety, and asthma who was admitted to the hospital for worsening confusion and hypoxia. Confusion and disorientation -multiple etiologies; COVID-19 infection, A-fib with RVR, dehydration, and aggravation of underlying dementia. -Head CT negative -Required Zyprexa and 1:1 early in admission but has returned to baseline. -Blood culture negative -PT/OT ordered and states that patient requires assistance with all ADLs and functional mobility at this time. -Case management consulted, plan to continue physical therapy at the [facility] Atrial fibrillation with RVR -Cardiology consulted -Diltiazem infusion DC'ed, transitioned to metoprolol tartrate. -ECHO showed EF 55-60, mild concentric LVH, mild AR, moderately dilated LA and RA, moderate to severe TR, RVSP elevated at 30-40mmHg. -Continue Metoprolol Tartrate 75mg BID -Continue Eliquis 2.5 mg twice daily Elevated troponin -Troponin of 34.4 on admission, repeat of 29.5. -Mild elevation, no indication of ACS at this time per cardiology. COVID-19 infection -Chest x-ray negative -EMS reports that she was 84% on room air when initially seen -Has been on room air for almost a week and has no respiratory symptoms at present Total Time Total Time Spent Total Time Spent (In Minutes): . Discharge Plan Discharge Items Patient Disposition: Personal [facility] Reason For Visit: ATRIAL FIB RVR, COVID-19, CONFUSION Discharge Diagnosis: Afib with RVR Condition on Discharge: Fair Activity: Per Instructions section Non-emergency contact: Primary Care Provider Call non-emergency contact if: you have any medication questions and your symptoms worsen Follow-up/Referrals: PCP,NO [Primary Care Provider] - Diet: Heart Healthy Addtl Attending Provider Instructions: The patient is an 87-year-old female with a past medical history including CAD, atrial fibrillation on Eliquis, hyperlipidemia, thoracic aortic ectasia, GERD, neuropathy, thrombocytopenia, restless leg syndrome, dementia, anxiety, and asthma who was admitted to the hospital for worsening confusion and hypoxia. Confusion and disorientation -multiple etiologies; COVID-19 infection, A-fib with RVR, dehydration, and aggravation of underlying dementia. -Head CT negative -Required Zyprexa and 1:1 early in admission but has returned to baseline. -Blood culture negative -PT/OT ordered and states that patient requires assistance with all ADLs and functional mobility at this time. -Case management consulted, plan to continue physical therapy at the [facility] Atrial fibrillation with RVR -Cardiology consulted: -Diltiazem infusion DC'ed, transitioned to metoprolol tartrate. -ECHO showed EF 55-60, mild concentric LVH, mild AR, moderately dilated LA and RA, moderate to severe TR, RVSP elevated at 30-40mmHg. -Continue Metoprolol Tartrate 75mg BID -Continue Eliquis 2.5 mg twice daily. Elevated troponin -Troponin of 34.4 on admission, repeat of 29.5. -Mild elevation, no indication of ACS at this time per cardiology. COVID-19 infection -Chest x-ray negative -EMS reports that she was 84% on room air when initially seen -Has been on room air for several days and has no respiratory symptoms at present Pending Studies at Discharge: No Stand-Alone Forms: My [facility] [employer], Smoking Cessation Skilled Items Patient informed of condition?: Yes DNR: Yes Discharge Level of Care: Skilled Communicable Disease: Yes (COVID positive on admission) Discharge Prognosis: Stable Lines: None Urinary Catheter: No Medications and DC Order Prescriptions: New Eliquis 2.5 mg Tablet 2.5 mg PO BID 30 Days Qty: 60 0RF metoprolol tartrate 25 mg Tablet 75 mg PO BID 30 Days Qty: 180 0RF Continued buspirone 5 mg tablet 5 mg PO Q8H PRN (Reason: Anxiety) acetaminophen [Tylenol] 325 mg Tablet 650 mg PO Q6H PRN (Reason: pain or fever) venlafaxine 150 mg capsule,extended release 24hr 150 mg PO DAILY pantoprazole 20 mg tablet,delayed release (DR/EC) 20 mg PO DAILY ropinirole 4 mg Tablet 2 mg PO BID Rx Instructions: At 1300 and 2000 Discontinued Eliquis 2.5 mg tablet 2.5 mg PO DAILY Discharge Orders: Discharge Order (Routine); Ordered 08/23/23 Ordered By: Suyapa Haynes/Other Patient Handouts: COVID-19 Home Care Admission Data Admit Date/Time: 08/17/23 12:55 Attending Provider: Chintan Gudino Admit Provider: Stefano Arriaga Primary Care Provider: PCP,NO Other Providers: [place]; Marline Helm at [place]; [facility],; Stefano Arriaga; Jose Kaplan Other Interventions: Discharge Summary Assessment (RN) Last Done: 08/23/23 14:18
--- NOTE | 2023-08-27 15:14 | Coding Query ---
To promote full compliance with coding requirements relating to patient care, provider participation is requested in all cases of soil conservationist uncertainty. Please assist us with the question(s) below: Coding Question(s): The diagnosis below was documented in the 08/22 Progress Note, then subsequently fell off all further documentation on the Discharge Summary. Please indicate if it is still a possible diagnosis or ruled out. Physician's Response(s): METABOLIC ENCEPHALOPATHY - PRESENT ON ADMISSION ( x) Diagnosed (improved, but was POA) ( ) Ruled out ( ) Other (please specify) MTDD
--- NOTE | 2023-08-27 15:26 | Coding Query ---
CODING QUERY To promote full compliance with coding requirements relating to patient care, provider participation is requested in all cases of employment specialist/program manager uncertainty. Please assist us with the question(s) below: Coding Question(s): Please specify below, in your clinical opinion, the most likely cause of Hypoxia during this admission: ( x ) COVID-19 ( ) Atrial Fibrillation ( ) Other: Please Specify ( ) Unknown likely source Physician's Response(s): Thank you Narda Mares Principal Diagnosis: "that condition established after study, to be chiefly responsible for occasioning the admission of the patient to the hospital for care." Co-Existing Principal Diagnosis: "when two or more diagnoses equally meet the criteria for principal diagnosis as determined by the circumstances of admission, diagnostic work up, and/or therapy provided, and the Alphabetic Index, Tabular List, or another coding guideline does not provide sequencing direction, any one of the diagnoses may be sequenced first." "When the physician has documented what appears to be a current diagnosis in the body of the record, but has not included the diagnosis in the final diagnostic statement, the physician should be asked whether the diagnosis should be added." (Source Coding Clinic 2 QTR90. p3-4) PABLO
--- NOTE | 2023-08-27 15:32 | Coding Query ---
CODING QUERY To promote full compliance with coding requirements relating to patient care, provider participation is requested in all cases of outpatient coder uncertainty. Please assist us with the question(s) below: Coding Question(s): The 08/17 Cardiology Consultation documents, regarding atrial fibrillation with rapid ventricular response, "Atrial fibrillation: Patient with a history of atrial fibrillation. No documentation regarding the chronicity of her atrial fibrillation. Possibly permanent. Possibly paroxysmal. It is very likely that the higher ventricular rates are associated with her viral infection and possibly an element volume depletion". The documentation regarding very likely that the higher ventricular rates are associated with her viral infection and possibly an element of volume depletion are not documented elsewhere. Please specify below in your clinical opinion: x( ) Agree with the documentation of, "It is very likely that the higher ventricular rates are associated with her viral infection and possibly an element volume depletion" ( ) Disagree with the documentation of, "It is very likely that the higher ventricular rates are associated with her viral infection and possibly an element volume depletion" Physician's Response(s): Thank you Narda Mares Principal Diagnosis: "that condition established after study, to be chiefly responsible for occasioning the admission of the patient to the hospital for care." Co-Existing Principal Diagnosis: "when two or more diagnoses equally meet the criteria for principal diagnosis as determined by the circumstances of admission, diagnostic work up, and/or therapy provided, and the Alphabetic Index, Tabular List, or another coding guideline does not provide sequencing direction, any one of the diagnoses may be sequenced first." "When the physician has documented what appears to be a current diagnosis in the body of the record, but has not included the diagnosis in the final diagnostic statement, the physician should be asked whether the diagnosis should be added." (Source [facility] 2 QTR90. p3-4) PABLO
== END 2023-08-23 14:38 | disposition home or self-care (01) | DRG 177 ==
LOC: ED 09:33 → SUATTDRO 12:55 → 2S 12:55 → 3E 08-22 18:32

== ENCOUNTER 2024-07-22 11:40 | Inpatient (IN) ==
[2024-07-22] MEDS: AMIODARONE 150MG / 100ML D5W IV ONE (11:59)
[2024-07-22] MEDS: AMIODARONE 360MG / 200ML D5W IV ONE (12:00)
[2024-07-22] MEDS: AMIODARONE / D5W 360 MG/200 ML BAG IV ONE (12:00)
[2024-07-22 12:09] LABS: iSTAT Creatinine 1.1 mg/dl (0.6-1.3); iSTAT Ionized Calcium 1.13 mmol/l (1.12-1.32); iSTAT Potassium 4.5 mmol/L (3.3-5.0)
[2024-07-22 12:16] LABS: Eosinophils # (auto) 0.03 K/uL (0.00-0.50); Eosinophils % (auto) 0.4 %; Hematocrit (blood only) 45.5 % (37.0-47.0); Hemoglobin 15.1 g/dl (12.0-16.0); Immature Granulocytes # (auto) 0.04 K/uL (0.01-0.20); Immature Granulocytes % (auto) 0.6 %; Lymphocytes # (auto) 1.13 K/uL (1.20-3.40); Lymphocytes % (auto) 16.7 %; Mean Corpuscular Hemoglobin 31.5 pg (25.0-34.0); Mean Corpuscular Hgb Conc 33.2 g/dL (32.0-36.0); Mean Corpuscular Volume 94.8 fL (80.0-100.0); Mean Platelet Volume 11.5 fL (9.4-12.4); Monocytes # (auto) 0.76 K/uL (0.11-0.59); Monocytes % (auto) 11.2 %; Neutrophils # (auto) 4.81 K/uL (1.40-6.50); Neutrophils % (auto) 71.1 %; Platelet Count 107 K/uL (130-400); RDW Coefficient of Variation 13.5 % (11.5-14.5); RDW Standard Deviation 46.5 fL (36.4-46.3); White Blood Count 6.77 K/ul (4.8-10.8)
[2024-07-22 12:32] LABS: Albumin Globulin Ratio 1.4 (0.9-2); Albumin Level 3.8 gm/dl (3.4-5.0); BUN Creatinine Ratio 19.4 (10-20); Bilirubin,Total 0.9 mg/dl (0.2-1.0); Calcium 9.3 mg/dl (8.6-10.3); Creatinine Clr Calc Pharmacy 25.6 ml/min; Globulin 2.8 gm/dl (2.5-4.0); Magnesium 1.7 mg/dl (1.7-2.4); Potassium 4.6 mmol/L (3.5-5.1); Total Protein 6.6 gm/dl (6.0-8.3)
--- NOTE | 2024-07-22 12:33 | XRay Report ---
XR chest 1V portable HISTORY: 88 years-old Female Dysrhythmia COMPARISON: 12/22/2023 TECHNIQUE: AP view of the chest FINDINGS: Cardiac silhouette is mildly enlarged. Atherosclerosis of the aorta. Chronic interstitial coarsening. No pneumothorax, pleural effusion or airspace consolidation. Left-sided rotator cuff calcific tendin osis. Degenerative changes of the shoulders and spine. IMPRESSION: Cardiomegaly without acute process. ACT 112: Negative or not required by law. The above report was generated using voice recognition software. It may contain grammatical, syntax o r spelling errors. Electronically signed by: Cain Landin M.D. 07/22/2024 12:31 PM
[2024-07-22 12:46] LABS: Thyroid Stimulating Hormone 2.475 uIu/ml (0.300-4.500)
[2024-07-22] MEDS: METOPROLOL TARTRATE 1 MG/ML VIAL IV STA (13:03)
[2024-07-22] MEDS: OPTIRAY 320 125ml IV ONE (13:29)
--- NOTE | 2024-07-22 13:43 | CT Scan Report ---
CT ANGIOGRAPHY OF THE CHEST, PULMONARY EMBOLUS PROTOCOL CLINICAL HISTORY: Tachycardia. Evaluate for pulmonary embolus. COMPARISON STUDY: Chest radiograph performed earlier today. Chest radiograph July 22, 2024. TECHNIQUE: Following IV administration of 60 mL of Optiray, helical axial images of the chest were ob tained utilizing the pulmonary embolus protocol. Maximal intensity projections and sagittal and alyx nal reformats were viewed on an independent 3D workstation. IV contrast was administered without com plication. Automated exposure control was utilized for the study. A dose lowering technique was uti lized adhering to the principles of ALARA. CT DOSE: 240.24 mGy.cm FINDINGS: No central or lobar pulmonary emboli are identified. Segmental and subsegmental pulmonary arteries are suboptimally assessed due to mixing artifact. The heart is moderately enlarged and there is moderate coronary artery calcification. No pericardial effusion is present. The thoracic aorta is not opacified. Ascending aorta is dilated, measuring 4.2 cm at the level of the main pulmonary arter y. 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 No pneumothorax is present. There is no pleural effusion. Central airways are patent. Subpleural groundglass opacities favor atelectasi s. There is no consolidation to suggest pneumonia. There are no suspicious pulmonary nodules. No acut e fractures within the bony thorax are present. Visualized portions of the upper abdomen are unremark able. The IVC and hepatic veins are mildly dilated with reflux of contrast. IMPRESSION: 1. No pulmonary emboli identified although segmental and subsegmental pulmonary arteries suboptimally assessed on this exam, as described above. 2. No acute intrathoracic findings. 3. Cardiomegaly. 4. Dilatation of the ascending aorta, measuring 4.2 cm at the level of the main pulmonary artery. 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 ACT 112: Negative or not required by law. Electronically signed by: Gerardo Phillips M.D. 07/22/2024 1:42 PM
--- NOTE | 2024-07-22 13:58 | History & Physical Report ---
Date of Service July 22, 2024 Assessment & Plan (1) Atrial fibrillation with rapid ventricular response: (2) Weakness: (3) GERD (gastroesophageal reflux disease): (4) Dementia: Plan Pt is a 88 yo female with a past medical history of dementia, atrial fibrillation on eliquis and metoprolol until 07/16/2024, CAD, HLD, GERD, restless leg syndrome, anxiety who presents to the hospital from [facility] on 07/22 for generalized decline and afib with RVR. #Afib with RVR - rates high 100s-200s on admission - given dose of amiodarone and then started on amiodarone drip - given 1 dose IV metoprolol by ER with conversion to NSR - was on metoprolol tartate 25 mg BID until 07/16 when it was decided to discontinue for HR 50s and low BPs 100s systolic or lower - was on eliquis until 07/16 when it was decided to stop as focus to shift to hospice/comfort - continue on amiodarone drip IV, consider transition to po tomorrow - defer troponin/echo as plan was to transition to hospice tomorrow at [facility] #Abdominal pain - asymptomatic on exam but [facility] staff worried about possible UTI as complained of pain earlier today and nausea - will do KUB and UA; pending #Anxiety - continue home buspirone - continue home venlafaxine #GERD - continue home pantoprazole VTE: Home eliquis stopped recently, will hold off on anticoagulation for now as family/POA planning for transition to hospice tomorrow at [facility] IVF: none Defer PT/OT as plan to get her back to [facility] on discharge. Defer am labs with plan to get her back to [facility] hopefully tomorrow. If pts declines, to call POA Darius who will likely decide to transition to comfort at that point. Called him on admission and he is okay with current plan to lightly work up abdominal pain and treat afib without anticoagulation. History of Present Illness Chief Complaint: Afib with RVR, general decline Primary Care Provider: [facility] Pt is a 88 yo female with a past medical history of dementia, atrial fibrillation on eliquis and metoprolol until 07/16/2024, CAD, HLD, GERD, restless leg syndrome, anxiety who presents to the hospital from [facility] on 07/22 for generalized decline and afib with RVR. Pt seen at bedside. She is awake and alert, very friendly, but oriented to self only. She states she is not sure why she is here because she felt fine but "I guess someone said something about my heart and then they just brought me in." She denies cough, congestion, sore throat, abdominal pain, diarrhea, chest pain, or SOB. She states she is feeling fine right now. No questions or concerns. Called over to [facility]. Staff state that they were concerned about her since over the last week or so she has complained of feeling generally unwell. She has been declining for awhile now, eating less and losing weight. Today, she was crying and inconsolable to the staff, complained of nausea and pointed to her belly to indicate she was maybe having some belly pain. She also noted shortness of breath today. Staff state she has hx of afib and was on eliquis and metoprolol until 07/16 when the metoprolol was stopped due to hypotension 100s/50s or so with rates in the 50s on BID regime and stopped from the eliquis due to shifting focus to quality of life. She is, however, no currently hospice. Son Darius is POA. Not on any inhalers or oxygen at the [facility]. Called ANDREW Mccoy. He states that he did see the pt recently and talked to the doctor at [facility] recently about transitioning her to a more comfort centered [facility]. Plan was to transition her to hospice at [facility] tomorrow, as she has been declining progressively with poor po intake and weight loss for months now. He is agreeable to continue what we are doing now without escalation of care and if she were to decline to call him and would likely then transition to a more comfort based approach. He states he lives about an hour and a half away. Allergies Allergy/AdvReac Type Severity Reaction Status Date / Time aspirin Allergy Severe Hives Unverified 12/22/23 19:38 ibuprofen Allergy Unknown Verified 12/22/23 19:38 latex Allergy Rash Verified 12/22/23 19:38 salicylates Allergy Unknown Verified 12/22/23 19:38 simvastatin AdvReac Muscle Pain Verified 12/22/23 19:38 Home Medications Medication Instructions Recorded Confirmed Type acetaminophen 325 mg tablet 650 mg PO Q6H PRN pain or fever 08/17/23 12/22/23 History (Tylenol) buspirone 5 mg tablet 5 mg PO Q8H PRN Anxiety 08/17/23 12/22/23 History pantoprazole 20 mg tablet,delayed 20 mg PO DAILY 08/17/23 12/22/23 History release venlafaxine 150 mg 150 mg PO DAILY 08/17/23 12/22/23 History capsule,extended release 24 hr apixaban 2.5 mg tablet (Eliquis) 2.5 mg PO BID 12/22/23 12/22/23 History metoprolol tartrate 25 mg tablet 25 mg PO BID 12/22/23 12/22/23 History Past Med/Surg History Problem List (Updated 07/22/24 @ 18:05 by Wale Phipps MD) Ventricular tachycardia (Acute) Confusion and disorientation (Acute) Restless leg syndrome Neuropathy GERD (gastroesophageal reflux disease) CAD (coronary artery disease) Thoracic aortic ectasia Asthma Hyperlipidemia Dementia Elevated troponin (Acute) COVID-19 (Acute) Atrial fibrillation with rapid ventricular response (Acute) Weakness (Acute) Hypoxia (Acute) Medical History (Updated 07/22/24 @ 18:05 by Wale Phipps MD) Hypertension Social History Smoking Status: Former smoker Second Hand Exposure: No; Tobacco Cessation Education Requested by Patient: No Hx Alcohol Use: No Hx Substance Use: No Preferred Language: Greek Communication Ability: Effective Mailer Apprentice Required: No Beliefs That Will Affect Care: None Current Living Situation: Other Current Living Situation Comment: assisted living at [facility] Feels Safe at Home: Yes Safety Concerns: Feels Safe At This Time Assistive Devices: None and Glasses Review of Systems Review of Systems: Per HPI. Physical Exam Physical Exam: General: Awake and alert, oriented to self only HEENT: Normocephalic, moist oral mucosa, Cardio: Regular rate and rhythm at time of exam, Resp: Lungs clear to auscultation b/l, no wheezes or rhonchi, GI: Soft and nontender, nondistended, bowel sounds active Skin: Warm, pink, dry, Results & Data Results & Data Vital Signs (Past 12 Hours) Vital Signs Temp Pulse Pulse Resp BP BP Pulse Ox 07/22/24 13:33 113 H 128/87 07/22/24 13:03 149 H 106/80 07/22/24 12:42 145 H 26 H 88 L 07/22/24 12:30 130/79 07/22/24 12:30 130/79 07/22/24 12:29 146 H 22 117/70 96 07/22/24 12:27 149 H 27 H 81 L 07/22/24 12:24 96/72 L 07/22/24 12:24 96/72 L 07/22/24 12:24 140 H 18 78 L 07/22/24 12:15 118/95 07/22/24 12:15 118/95 07/22/24 12:09 154 H 19 84 L 07/22/24 12:00 125/81 07/22/24 12:00 125/81 07/22/24 12:00 147 H 125/81 07/22/24 12:00 125/81 07/22/24 12:00 125/81 07/22/24 12:00 149 H 27 H 84 L 07/22/24 11:54 169 H 25 H 87 L 07/22/24 11:47 180/108 H 07/22/24 11:45 209 H 07/22/24 11:28 18 07/22/24 11:28 07/22/24 11:21 36.6 C 173 H 18 180/108 H 94 O2 Del Method 07/22/24 13:33 07/22/24 13:03 07/22/24 12:42 07/22/24 12:30 07/22/24 12:30 07/22/24 12:29 Room Air 07/22/24 12:27 07/22/24 12:24 07/22/24 12:24 07/22/24 12:24 07/22/24 12:15 07/22/24 12:15 07/22/24 12:09 07/22/24 12:00 07/22/24 12:00 07/22/24 12:00 07/22/24 12:00 07/22/24 12:00 07/22/24 12:00 07/22/24 11:54 07/22/24 11:47 07/22/24 11:45 07/22/24 11:28 07/22/24 11:28 Room Air 07/22/24 11:21 Room Air Supervising Physician Co-Signing Physician Notes I personally saw and examined the patient. I independently reviewed the labs, EKG, imaging, problem list, medication list, past medical history and family history. I verified all banda points and agree with resident physician Dr Chiara Butcher, DO with the following exceptions and/or additions: 88 year old female presents to the ER with a. fib RVR. [employer] unsure why she is here and unable to get any history from the patient O/E Alert and orientated to person only, HS RRR, no murmurs, Chest CTAB, Abdo SNT A/P A fib RVR - back in NSR after both metoprolol and amiodarone, paroxysmal a. fib and recently taken of metoprolol as not tolerating with low BP therefore would favor continuing rhythm control with amiodarone at this time as patient planning to switch to hospice care, No need to restart anticoagulation. No need for TTE. If remains in NSR tomorrow on drip can switch to PO and likely discharge. Resident Activity Tracking Resident Involvement: Resident Care Provided Care Provided: Adult Hospital Medicine
[2024-07-22] MEDS ORDERED: 0.2 MICRON FILTER SET 1 EACH IV STA (14:36)
[2024-07-22] MEDS: STAT IV Infusion **Titration per Protocol STA (14:43)
[2024-07-22] MEDS: AMIODARONE IV BOLUS & DRIP IV STA (14:43)
[2024-07-22] MEDS: AMIODARONE / D5W 150 MG/100 ML BAG IV STA (14:43)
--- NOTE | 2024-07-22 15:33 | XRay Report ---
KUB CLINICAL HISTORY: Abdominal pain. COMPARISON STUDY: None. FINDINGS: Incidental note is made of contrast within the collecting systems, ureters and bladder from recent contrast-enhanced CT. The bowel gas pattern is normal. There is no evidence for free air on s upine exam. Severe osteoarthritis of both hips is incidentally noted. The amount of stool is within n ormal limits. IMPRESSION: Unremarkable KUB. No evidence for a bowel obstruction. ACT 112: Negative or not required by law. Electronically signed by: Gerardo Phillips M.D. 07/22/2024 3:32 PM
--- NOTE | 2024-07-22 16:19 | Emergency Department Note ---
Impression & Plan Atrial fibrillation with rapid ventricular response, Confusion and disorientation, Hypoxia, Ventricular tachycardia ED Provider Note NAME: CAITLIN CALVERT AGE: 88 SEX: F : 1935 ARRIVES VIA: Ambulance INFORMANT: Patient, ED PROVIDER(S): Wale Phipps MD CHIEF COMPLAINT: Tachycardia HPI: This is a 88-year-old female presenting for tachycardia. Patient was reportedly EMS call for abdominal pain. Body mass arrival she had no abdominal pain but was having elevated heart rates into the 220s. She became mildly hypotensive en route. Upon arrival here her heart rate fluctuates to be 170 and 200. Patient states she has no current complaints after the fact that she feels somewhat off. EMS did report that patient was exertionally dyspneic from walking to the stretcher when they picked her up. Otherwise she is not any nausea, vomiting or chest pain. No fevers or chills. ROS: See above HPI for pertinent positives & negatives. A total of 10 systems reviewed and were otherwise negative. PAST MEDICAL HISTORY: See Below PAST SURGICAL HISTORY: See Below FAMILY HISTORY: See Below SOCIAL HISTORY: See Below HOME MEDICATIONS: See Below ALLERGIES: See Below VITALS: See Below PHYSICAL EXAMINATION: General: resting comfortably in no acute distress Head: Normocephalic and atraumatic Eyes: Normal inspection, extraocular muscles intact Ear, nose, throat: Normal external exam Neck: Normal range of motion Respiratory: lungs clear to auscultation bilaterally Cardiovascular: Tachycardic, irregularly irregular rate/rhythm, no murmur GI: soft, nontender, no guarding or rebound Extremities: nontender, moves all extremities Neuro: The patient awake and alert, appropriately conversive, no focal deficits, symmetric faces Skin: Warm, dry, and intact MEDICAL DECISION MAKING: This is a an 88-year-old female presenting for tachycardia. Patient is in A-fib with RVR. On the monitor as well as on EKG there is a 6-10 beat run of V. tach numerous times. Patient was recently stopped on metoprolol and Eliquis at her facility 07/16 for unknown reasons. Due to the mix of V. tach with the A-fib, will start amiodarone. Patient given amiodarone bolus and drip. Patient's heart rate is downtrending from the 170-220 down to 150s. -Chest Xray independently interpreted by me showing cardiomegaly, no pneumothorax, focal opacity, or pleural effusions. -ECG independently interpreted by me with atrial fibrillation with RVR at a rate of 210, about 6 beats of V. tach, QRS 64, QTc 3-5 5, no ST segment elevations consistent with STEMI criteria -Second ECG independently interpreted by me with atrial fibrillation at a rate of 142, QRS 68, normal QTc, no ST segment elevations consistent with STEMI criteria -Third ECG independently interpreted by me with normal sinus rhythm, rate of 76, normal axis, short IN, normal QRS, normal QTc, no ST segment elevations consistent with STEMI criteria -With patient's heart rate now stabilized around 150s, discussed with cardiology, Dr. Green about next steps. He recommends IV metoprolol. -CTA ordered to rule out PE as patient due to the slight hypoxia this also noted. CT imaging does not reveal PE but does reveal ascending aortic dilation. -Patient given IV metoprolol, 5 mg, is improving with rates now in the 125 -Patient did convert to sinus rhythm eventually. However with her lack of anticoagulation, episodes of V. tach, will admit for further workup. -Care discussed with Dr. Agarwal for admission Differential diagnosis: A-fib RVR, V. tach, PE, ACS Diagnostics interpreted by me: ECG: See above Cardiac Monitoring: An order was placed for continuous cardiac monitoring. The monitor shows a rate of 155 with atrial fibrillation rhythm. Critical Care Note: I have personally spent 60 minutes of critical care time in the direct management of this patient. This includes bedside care, interpretation of diagnostic studies, and testing, discussion with consultants, patient, and family members, and other required patient management activities. This 60 minutes is in excess of all separately billable procedures. Past Med/Surg History Problem List (Updated 07/22/24 @ 18:05 by Wale Phipps MD) Ventricular tachycardia (Acute) Confusion and disorientation (Acute) Restless leg syndrome Neuropathy GERD (gastroesophageal reflux disease) CAD (coronary artery disease) Thoracic aortic ectasia Asthma Hyperlipidemia Dementia Elevated troponin (Acute) COVID-19 (Acute) Atrial fibrillation with rapid ventricular response (Acute) Weakness (Acute) Hypoxia (Acute) Medical History (Updated 07/22/24 @ 18:05 by Wale Phipps MD) Hypertension Social History Smoking Status: Former smoker Hx Alcohol Use: No Hx Substance Use: No Preferred Language: Turkish Communication Ability: Effective Skin Care Technician Required: No Beliefs That Will Affect Care: None Current Living Situation: Other Current Living Situation Comment: assisted living at [facility] Feels Safe at Home: Yes Assistive Devices: None Allergies Allergies Allergy/AdvReac Type Severity Reaction Status Date / Time aspirin Allergy Severe Hives Unverified 12/22/23 19:38 ibuprofen Allergy Unknown Verified 12/22/23 19:38 latex Allergy Rash Verified 12/22/23 19:38 salicylates Allergy Unknown Verified 12/22/23 19:38 simvastatin AdvReac Muscle Pain Verified 12/22/23 19:38 Home Meds Home Medications Medication Instructions Recorded Confirmed acetaminophen 325 mg tablet 650 mg PO Q6H PRN pain or fever 08/17/23 12/22/23 (Tylenol) buspirone 5 mg tablet 5 mg PO Q8H PRN Anxiety 08/17/23 12/22/23 pantoprazole 20 mg tablet,delayed 20 mg PO DAILY 08/17/23 12/22/23 release venlafaxine 150 mg 150 mg PO DAILY 08/17/23 12/22/23 capsule,extended release 24 hr apixaban 2.5 mg tablet (Eliquis) 2.5 mg PO BID 12/22/23 12/22/23 metoprolol tartrate 25 mg tablet 25 mg PO BID 12/22/23 12/22/23 Results & Data (ED) Vital Signs Vital Signs - 24 hr 07/22/24 11:21 07/22/24 11:28 07/22/24 11:28 Temperature 36.6 C Temperature Source Temporal Artery Scan Pulse Rate 173 H Pulse Rate [Apical] Pulse Rate from SpO2 Sensor Respiratory Rate 18 18 Respiratory Effort / Characteristics Respiratory Depth Respiratory Pattern Blood Pressure 180/108 H Blood Pressure [Left Arm] Blood Pressure Mean 132 Blood Pressure Mean [Left Arm] Pulse Oximetry 94 Oxygen Delivery Method Room Air Room Air Sepsis Recent Fever Within 48 Hours No Sepsis New/Unexplained Change in Mental Status N/A Sepsis Action Taken by Nursing No Action Required 07/22/24 11:45 07/22/24 11:47 07/22/24 11:54 Temperature Temperature Source Pulse Rate 209 H 169 H Pulse Rate [Apical] Pulse Rate from SpO2 Sensor 95 H Respiratory Rate 25 H Respiratory Effort / Characteristics Respiratory Depth Respiratory Pattern Blood Pressure 180/108 H Blood Pressure [Left Arm] Blood Pressure Mean 118 Blood Pressure Mean [Left Arm] Pulse Oximetry 87 L Oxygen Delivery Method Sepsis Recent Fever Within 48 Hours Sepsis New/Unexplained Change in Mental Status Sepsis Action Taken by Nursing 07/22/24 12:00 07/22/24 12:00 07/22/24 12:00 Temperature Temperature Source Pulse Rate 149 H Pulse Rate [Apical] Pulse Rate from SpO2 Sensor 127 H Respiratory Rate 27 H Respiratory Effort / Characteristics Respiratory Depth Respiratory Pattern Blood Pressure 125/81 125/81 Blood Pressure [Left Arm] Blood Pressure Mean 86 86 Blood Pressure Mean [Left Arm] Pulse Oximetry 84 L Oxygen Delivery Method Sepsis Recent Fever Within 48 Hours Sepsis New/Unexplained Change in Mental Status Sepsis Action Taken by Nursing 07/22/24 12:00 07/22/24 12:00 07/22/24 12:00 Temperature Temperature Source Pulse Rate 147 H Pulse Rate [Apical] Pulse Rate from SpO2 Sensor Respiratory Rate Respiratory Effort / Characteristics Respiratory Depth Respiratory Pattern Blood Pressure 125/81 125/81 125/81 Blood Pressure [Left Arm] Blood Pressure Mean 86 86 86 Blood Pressure Mean [Left Arm] Pulse Oximetry Oxygen Delivery Method Sepsis Recent Fever Within 48 Hours Sepsis New/Unexplained Change in Mental Status Sepsis Action Taken by Nursing 07/22/24 12:09 07/22/24 12:15 07/22/24 12:15 Temperature Temperature Source Pulse Rate 154 H Pulse Rate [Apical] Pulse Rate from SpO2 Sensor 124 H Respiratory Rate 19 Respiratory Effort / Characteristics Respiratory Depth Respiratory Pattern Blood Pressure 118/95 118/95 Blood Pressure [Left Arm] Blood Pressure Mean 110 110 Blood Pressure Mean [Left Arm] Pulse Oximetry 84 L Oxygen Delivery Method Sepsis Recent Fever Within 48 Hours Sepsis New/Unexplained Change in Mental Status Sepsis Action Taken by Nursing 07/22/24 12:24 07/22/24 12:24 07/22/24 12:24 Temperature Temperature Source Pulse Rate 140 H Pulse Rate [Apical] Pulse Rate from SpO2 Sensor 142 H Respiratory Rate 18 Respiratory Effort / Characteristics Respiratory Depth Respiratory Pattern Blood Pressure 96/72 L 96/72 L Blood Pressure [Left Arm] Blood Pressure Mean 89 89 Blood Pressure Mean [Left Arm] Pulse Oximetry 78 L Oxygen Delivery Method Sepsis Recent Fever Within 48 Hours Sepsis New/Unexplained Change in Mental Status Sepsis Action Taken by Nursing 07/22/24 12:27 07/22/24 12:29 07/22/24 12:30 Temperature Temperature Source Pulse Rate 149 H Pulse Rate [Apical] 146 H Pulse Rate from SpO2 Sensor 129 H Respiratory Rate 27 H 22 Respiratory Effort / Characteristics Respiratory Depth Respiratory Pattern Blood Pressure 130/79 Blood Pressure [Left Arm] 117/70 Blood Pressure Mean 95 Blood Pressure Mean [Left Arm] 85 Pulse Oximetry 81 L 96 Oxygen Delivery Method Room Air Sepsis Recent Fever Within 48 Hours Sepsis New/Unexplained Change in Mental Status Sepsis Action Taken by Nursing 07/22/24 12:30 07/22/24 12:42 07/22/24 13:03 Temperature Temperature Source Pulse Rate 145 H 149 H Pulse Rate [Apical] Pulse Rate from SpO2 Sensor 123 H Respiratory Rate 26 H Respiratory Effort / Characteristics Respiratory Depth Respiratory Pattern Blood Pressure 130/79 106/80 Blood Pressure [Left Arm] Blood Pressure Mean 95 Blood Pressure Mean [Left Arm] Pulse Oximetry 88 L Oxygen Delivery Method Sepsis Recent Fever Within 48 Hours Sepsis New/Unexplained Change in Mental Status Sepsis Action Taken by Nursing 07/22/24 13:33 07/22/24 14:03 07/22/24 14:26 Temperature Temperature Source Pulse Rate 113 H 78 82 Pulse Rate [Apical] Pulse Rate from SpO2 Sensor 78 Respiratory Rate 24 Respiratory Effort / Characteristics Respiratory Depth Respiratory Pattern Blood Pressure 128/87 119/81 Blood Pressure [Left Arm] Blood Pressure Mean 93 Blood Pressure Mean [Left Arm] Pulse Oximetry 100 Oxygen Delivery Method Room Air Sepsis Recent Fever Within 48 Hours Sepsis New/Unexplained Change in Mental Status Sepsis Action Taken by Nursing 07/22/24 15:06 07/22/24 15:35 07/22/24 16:00 Temperature Temperature Source Pulse Rate 84 Pulse Rate [Apical] 87 83 Pulse Rate from SpO2 Sensor Respiratory Rate 20 18 18 Respiratory Effort / Characteristics Non-Labored Spontaneous Non-Labored Spontaneous Respiratory Depth Normal Normal Respiratory Pattern Regular Regular Blood Pressure 146/91 H Blood Pressure [Left Arm] 155/102 H 148/94 H Blood Pressure Mean 109 Blood Pressure Mean [Left Arm] 119 112 Pulse Oximetry 100 96 96 Oxygen Delivery Method Room Air Room Air Sepsis Recent Fever Within 48 Hours Sepsis New/Unexplained Change in Mental Status Sepsis Action Taken by Nursing 07/22/24 17:00 Temperature Temperature Source Pulse Rate Pulse Rate [Apical] 92 H Pulse Rate from SpO2 Sensor Respiratory Rate 18 Respiratory Effort / Characteristics Non-Labored Spontaneous Respiratory Depth Normal Respiratory Pattern Regular Blood Pressure Blood Pressure [Left Arm] 173/108 H Blood Pressure Mean Blood Pressure Mean [Left Arm] 129 Pulse Oximetry 99 Oxygen Delivery Method Room Air Sepsis Recent Fever Within 48 Hours Sepsis New/Unexplained Change in Mental Status Sepsis Action Taken by Nursing Laboratory Data 07/22/24 11:54 07/22/24 11:54 Lab Results 07/22/24 07/22/24 07/22/24 Range/Units 11:54 11:57 14:30 WBC 6.77 (4.8-10.8) K/ul RBC 4.80 (4.20-5.40) M/uL Hgb 15.1 (12.0-16.0) g/dl POC Hgb 16.0 (12.0-16.0) g/dl Hct 45.5 (37.0-47.0) % POC Hct 47 (37-47) % MCV 94.8 (80.0-100.0) fL MCH 31.5 (25.0-34.0) pg MCHC 33.2 (32.0-36.0) g/dL RDW Std Deviation 46.5 H (36.4-46.3) fL RDW Coeff of Turner 13.5 (11.5-14.5) % Plt Count 107 L (130-400) K/uL MPV 11.5 (9.4-12.4) fL Immature Gran % (Auto) 0.6 % Neut % (Auto) 71.1 % Lymph % (Auto) 16.7 % Stanly % (Auto) 11.2 % Eos % (Auto) 0.4 % Baso % (Auto) 0.0 % Neut # (Auto) 4.81 (1.40-6.50) K/uL Lymph # (Auto) 1.13 L (1.20-3.40) K/uL Stanly # (Auto) 0.76 H (0.11-0.59) K/uL Eos # (Auto) 0.03 (0.00-0.50) K/uL Baso # (Auto) 0.00 (0.00-0.20) K/uL Immature Gran # (Auto) 0.04 (0.01-0.20) K/uL POC Sodium 142 (135-144) mmol/L Sodium 143 (136-145) mmol/L POC Potassium 4.5 (3.3-5.0) mmol/L Potassium 4.6 (3.5-5.1) mmol/L POC Chloride 109 (101-112) mmol/L Chloride 108 H (98-107) mmol/L Carbon Dioxide 23 (21-32) mmol/L POC Total CO2 20 L (24-31) mmol/L Anion Gap 12 H (3-11) POC Anion Gap 18.0 (16-25) mmol/L POC BUN 22 H (7-18) mg/dl BUN 21 (6-23) mg/dl Creatinine 1.08 (0.6-1.2) mg/dl POC Creatinine 1.1 (0.6-1.3) mg/dl Est Cr Clr Drug Dosing 25.6 ml/min eGFR 49.71 BUN/Creatinine Ratio 19.4 (10-20) Glucose 88 (70-99(Fasting)) mg/dl POC Glucose (other) 86 (70-99) mg/dl Calcium 9.3 (8.6-10.3) mg/dl POC Ioniz Calcium Susan 1.13 (1.12-1.32) mmol/l Magnesium 1.7 (1.7-2.4) mg/dl Total Bilirubin 0.9 (0.2-1.0) mg/dl AST 19 (13-39) U/L ALT 11 (7-52) U/L Alkaline Phosphatase 97 (34-104) U/L Total Protein 6.6 (6.0-8.3) gm/dl Albumin 3.8 (3.4-5.0) gm/dl Globulin 2.8 (2.5-4.0) gm/dl Albumin/Globulin Ratio 1.4 (0.9-2) TSH 2.475 (0.300-4.500) uIu/ml SARS-CoV-2, RNA, NAAT NEGATIVE (NEGATIVE) Administered Medications Amiodarone HCl/Dextrose (Nexterone / D5w) 360 mg in 200 mls @ 33.333 mls/hr IV ONE ONE Stop: 07/22/24 20:45 Last Infusion: 07/22/24 17:50 Dose: Infused Documented By: BRADFORD Co-signed By: GPF Admin: 07/22/24 12:00 Dose: 1 mg/min, 33.3 mls/hr Documented By: MILDRED Co-signed By: BRADFORD Amiodarone HCl/Dextrose (Nexterone / D5w) 360 mg in 200 mls @ 16.667 mls/hr IV .Q12H EVER Stop: 08/21/24 20:44 Last Admin: 07/22/24 17:50 Dose: 0.5 mg/min, 16.7 mls/hr Documented By: BRADFORD Co-signed By: GPF Discontinued Medications Amiodarone HCl/Dextrose (Amiodarone 360mg / 200ml D5w) Confirm Administered Dose 360 mg IV .STK-MED ONE Stop: 07/22/24 11:50 Last Admin: 07/22/24 17:49 Dose: Not Given Documented By: BRADFORD Amiodarone HCl/Dextrose (Amiodarone 150mg / 100ml D5w) Confirm Administered Dose 150 mg IV .STK-MED ONE Stop: 07/22/24 11:50 Last Admin: 07/22/24 11:59 Dose: 150 mg Documented By: MILDRED Co-signed By: DWIGHT Amiodarone HCl (Amiodarone Iv Bolus & Drip) 1 each IV NOW STA; Protocol Stop: 07/22/24 14:37 Last Admin: 07/22/24 14:43 Dose: 1 each Documented By: MILDRED Amiodarone HCl/Dextrose (Nexterone / D5w) 150 mg in 100 mls @ 600 mls/hr IV NOW STA Stop: 07/22/24 14:45 Last Admin: 07/22/24 14:43 Dose: Not Given Documented By: MILDRED Ioversol (Optiray 320 125ml) 60 ml IV ONCE ONE Stop: 07/22/24 13:30 Last Admin: 07/22/24 13:29 Dose: 60 ml Documented By: AURELIA Metoprolol Tartrate (Metoprolol Tartrate 1 Mg/Ml Vial) 5 mg IV NOW STA Stop: 07/22/24 13:01 Last Admin: 07/22/24 13:03 Dose: 5 mg Documented By: MILDRED Miscellaneous (Stat Iv Infusion Titration Per Protocol) 1 each N/A NOW STA Stop: 07/22/24 14:37 Last Admin: 07/22/24 14:43 Dose: 1 each Documented By: MILDRED Imaging Data Radiologist's Impression: Chest X-Ray 07/22/24 11:54 XR chest 1V portable HISTORY: 88 years-old Female Dysrhythmia COMPARISON: 12/22/2023 TECHNIQUE: AP view of the chest FINDINGS: Cardiac silhouette is mildly enlarged. Atherosclerosis of the aorta. Chronic interstitial coarsening. No pneumothorax, pleural effusion or airspace consolidation. Left-sided rotator cuff calcific tendinosis. Degenerative changes of the shoulders and spine. IMPRESSION: Cardiomegaly without acute process. ACT 112: Negative or not required by law. The above report was generated using voice recognition software. It may contain grammatical, syntax or spelling errors. Electronically signed by: Cain Landin M.D. 07/22/2024 12:31 PM Chest CTA 07/22/24 13:12 CT ANGIOGRAPHY OF THE CHEST, PULMONARY EMBOLUS PROTOCOL CLINICAL HISTORY: Tachycardia. Evaluate for pulmonary embolus. COMPARISON STUDY: Chest radiograph performed earlier today. Chest radiograph July 22, 2024. TECHNIQUE: Following IV administration of 60 mL of Optiray, helical axial images of the chest were obtained utilizing the pulmonary embolus protocol. Maximal intensity projections and sagittal and coronal reformats were viewed on an independent 3D workstation. IV contrast was administered without complication. Automated exposure control was utilized for the study. A dose lowering technique was utilized adhering to the principles of ALARA. CT DOSE: 240.24 mGy.cm FINDINGS: No central or lobar pulmonary emboli are identified. Segmental and subsegmental pulmonary arteries are suboptimally assessed due to mixing artifact. The heart is moderately enlarged and there is moderate coronary artery calcification. No pericardial effusion is present. The thoracic aorta is not opacified. Ascending aorta is dilated, measuring 4.2 cm at the level of the main pulmonary artery. 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 No pneumothorax is present. There is no pleural effusion. Central airways are patent. Subpleural groundglass opacities favor atelectasis. There is no consolidation to suggest pneumonia. There are no suspicious pulmonary nodules. No acute fractures within the bony thorax are present. Visualized portions of the upper abdomen are unremarkable. The IVC and hepatic veins are mildly dilated with reflux of contrast. IMPRESSION: 1. No pulmonary emboli identified although segmental and subsegmental pulmonary arteries suboptimally assessed on this exam, as described above. 2. No acute intrathoracic findings. 3. Cardiomegaly. 4. Dilatation of the ascending aorta, measuring 4.2 cm at the level of the main pulmonary artery. 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 ACT 112: Negative or not required by law. Electronically signed by: Gerardo Phillips M.D. 07/22/2024 1:42 PM KUB X-Ray 07/22/24 14:34 KUB CLINICAL HISTORY: Abdominal pain. COMPARISON STUDY: None. FINDINGS: Incidental note is made of contrast within the collecting systems, ureters and bladder from recent contrast-enhanced CT. The bowel gas pattern is normal. There is no evidence for free air on supine exam. Severe osteoarthritis of both hips is incidentally noted. The amount of stool is within normal limits. IMPRESSION: Unremarkable KUB. No evidence for a bowel obstruction. ACT 112: Negative or not required by law. Electronically signed by: Gerardo Phillips M.D. 07/22/2024 3:32 PM Discharge Plan Visit Data Chief Complaint: Tachycardia Stated Complaint: TACHYACARDIA ED Provider: Wale Phipps Discharge Problem: Atrial fibrillation with rapid ventricular response, Confusion and disorientation, Hypoxia, Ventricular tachycardia Patient Disposition: Admitted As Inpatient Discharge Instructions Interventions: ED Discharge Assessment Last Done: 07/22/24 17:26 Forms Stand Alone Forms: [facility] [employer] Prescriptions Prescriptions: No Action buspirone 5 mg tablet 5 mg PO Q8H PRN (Reason: Anxiety) acetaminophen [Tylenol] 325 mg Tablet 650 mg PO Q6H PRN (Reason: pain or fever) venlafaxine 150 mg capsule,extended release 24hr 150 mg PO DAILY pantoprazole 20 mg tablet,delayed release (DR/EC) 20 mg PO DAILY Eliquis 2.5 mg tablet 2.5 mg PO BID metoprolol tartrate 25 mg tablet 25 mg PO BID Referrals Referrals: ИРИНА, [Primary Care Provider] -
[2024-07-22] MEDS: AMIODARONE / D5W 360 MG/200 ML BAG IV SCH (17:50)
[2024-07-22] MEDS ORDERED: ACETAMINOPHEN 325 MG TAB PO PRN (18:15)
[2024-07-22] MEDS ORDERED: POLYETHYLENE (MIRALAX) 17 GM PACK PO PRN (18:15)
[2024-07-22] MEDS ORDERED: ONDANSETRON INJ 2 MG/ML 2 ML VIAL IV PRN (18:15)
--- NOTE | 2024-07-23 08:07 | Billing Data ---
Date of Service July 22, 2024 Coding Level of Care Code 70969 INT INP/OBS CARE
[2024-07-23 08:58] LABS: Appearance Urine Clear (Clear); Bacteria Urine Automated None Seen (None Seen); Bilirubin Urine Negative (Negative); Blood Urine Trace (Negative); Cast Urine Automated 0-2 /lpf (0-2); Color Urine Yellow; Epithelial Cell Urine Auto 0-2 /hpf (0-2); Glucose Urine UA Negative (Negative); Ketones Urine Trace (Negative); Leukocyte Esterase Urine Trace (Negative); Nitrite Urine Negative (Negative); Protein Urine Negative (Negative); RBC Urine Automated 0-2 /hpf (0-2); Specific Gravity Urine 1.017 (1.000-1.030); Urobilinogen Urine Negative (Negative); WBC Urine Automated 0-5 /hpf (0-5)
--- NOTE | 2024-07-23 09:24 | Electrocardiogram Report ---
Test Reason : Blood Pressure : */* mmHG Vent. Rate : 210 BPM Atrial Rate : * BPM P-R Int : * ms QRS Dur : 64 ms QT Int : 190 ms P-R-T Axes : * 13 240 degrees QTcB Int : 355 ms Atrial fibrillation with rapid ventricular response with premature ventricular or aberrantly conducte d complexes Anterior infarct , age undetermined Marked ST abnormality, possible inferior subendocardial injury Abnormal ECG When compared with ECG of 22-Dec-2023 19:58, Significant changes have occurred Confirmed by Mark Green ([id number]) on 07/23/2024 9:24:16 AM Referred By: AMELIE GIFFORD Confirmed By: Mark Green
[2024-07-23] MEDS: VENLAFAXINE HCL XR 150 MG CAPXR PO SCH (09:28)
[2024-07-23] MEDS: PANTOprazole 40 MG TAB PO SCH (09:29)
--- NOTE | 2024-07-23 14:11 | Hospitalist Progress Note ---
Date of Service July 23, 2024 Assessment & Plan (1) Atrial fibrillation with rapid ventricular response: Plan: pt's a.fib is paroxysmal based on previous EKGs when she is in a.fib her rates are quite fast suspect she does get symptomatic/feels poorly when rates are >150 did convert to NSR yesterday in the ER was subsequently placed on amiodarone infusion to try and maintain NSR unfortunately she has converted back to a.fib multiple times and rates remain quite fast will give the amiodarone infusion another 24 hours and reassess response tomorrow this is a complex situation as patient was to go on Hospice at the [place] this week want to control the a.fib but at the same time aggressive measures are not necessarily in her best interest given pending Hospice status of note - TSH, K, mag levels all wnl (2) Weakness: Plan: likely due to #1 (3) GERD (gastroesophageal reflux disease): Plan: cont PPI (4) Dementia: Plan: advanced with agitation/behavioral disturbance haldol 2mg IM prn schedule risperdal 0.5mg at HS tonight sitter (1:1) as needed consider soft mitts on hands if she keeps pulling out IVs and safety is a concern Plan updated pt's son Darius Rhoades by phone this evening Admission and Anticipated Discharge Date Admission Date: July 22, 2024 Subjective patient with periods of NSR, sinus tach, and rapid a.fib on tele during my visit patient with pleasant confusion - unable to provide any meaningful history or ROS staff report no obvious pain po intake is poor late in the day became agitated and started to pull out her IVs amio drip continues Review of Systems Review of Systems: Unobtainable due to cognitive status Physical Exam Physical Exam: gen - thin, NAD, pleasantly confused neck - no JVD mouth - MMM heart - tachy, irregular, s1 s2, possible gallop noted lungs - CTA b/l abd - soft NT ND BS+ ext - no edema, pulses 2+ b/l Results & Data Results & Data Vital Signs (Past 12 Hours) Vital Signs Temp Pulse Resp BP Pulse Ox O2 Del Method 07/23/24 11:14 36.8 C 96 H 16 151/92 H 96 Room Air 07/23/24 07:26 36.7 C 90 16 177/92 H 96 Room Air 07/23/24 04:30 153/82 H 07/23/24 04:00 36.7 C 103 H 20 100 Room Air Laboratory Results Laboratory Results - last 48 hr 07/22/24 07/22/24 07/22/24 11:54 11:57 14:30 WBC 6.77 RBC 4.80 Hgb 15.1 POC Hgb 16.0 Hct 45.5 POC Hct 47 MCV 94.8 MCH 31.5 MCHC 33.2 RDW Std Deviation 46.5 H RDW Coeff of Turner 13.5 Plt Count 107 L MPV 11.5 Immature Gran % (Auto) 0.6 Neut % (Auto) 71.1 Lymph % (Auto) 16.7 Norton % (Auto) 11.2 Eos % (Auto) 0.4 Baso % (Auto) 0.0 Neut # (Auto) 4.81 Lymph # (Auto) 1.13 L Norton # (Auto) 0.76 H Eos # (Auto) 0.03 Baso # (Auto) 0.00 Immature Gran # (Auto) 0.04 POC Sodium 142 Sodium 143 POC Potassium 4.5 Potassium 4.6 POC Chloride 109 Chloride 108 H Carbon Dioxide 23 POC Total CO2 20 L Anion Gap 12 H POC Anion Gap 18.0 POC BUN 22 H BUN 21 Creatinine 1.08 POC Creatinine 1.1 Est Cr Clr Drug Dosing 25.6 eGFR 49.71 BUN/Creatinine Ratio 19.4 Glucose 88 POC Glucose (other) 86 Calcium 9.3 POC Ioniz Calcium Susan 1.13 Magnesium 1.7 Total Bilirubin 0.9 AST 19 ALT 11 Alkaline Phosphatase 97 Total Protein 6.6 Albumin 3.8 Globulin 2.8 Albumin/Globulin Ratio 1.4 TSH 2.475 Urine Color Urine Appearance Urine pH Ur Specific [place] Urine Protein Urine Glucose (UA) Urine Ketones Urine Blood Urine Nitrite Urine Bilirubin Urine Urobilinogen Ur Leukocyte Esterase Urine WBC (Auto) Urine RBC (Auto) U Hyaline Cast (Auto) U Epithel Cells (Auto) Urine Bacteria (Auto) SARS-CoV-2, RNA, NAAT NEGATIVE 07/23/24 08:38 WBC RBC Hgb POC Hgb Hct POC Hct MCV MCH MCHC RDW Std Deviation RDW Coeff of Turner Plt Count MPV Immature Gran % (Auto) Neut % (Auto) Lymph % (Auto) Norton % (Auto) Eos % (Auto) Baso % (Auto) Neut # (Auto) Lymph # (Auto) Norton # (Auto) Eos # (Auto) Baso # (Auto) Immature Gran # (Auto) POC Sodium Sodium POC Potassium Potassium POC Chloride Chloride Carbon Dioxide POC Total CO2 Anion Gap POC Anion Gap POC BUN BUN Creatinine POC Creatinine Est Cr Clr Drug Dosing eGFR BUN/Creatinine Ratio Glucose POC Glucose (other) Calcium POC Ioniz Calcium Susan Magnesium Total Bilirubin AST ALT Alkaline Phosphatase Total Protein Albumin Globulin Albumin/Globulin Ratio TSH Urine Color Yellow Urine Appearance Clear Urine pH 5.0 Ur Specific [place] 1.017 Urine Protein Negative Urine Glucose (UA) Negative Urine Ketones Trace H Urine Blood Trace H Urine Nitrite Negative Urine Bilirubin Negative Urine Urobilinogen Negative Ur Leukocyte Esterase Trace H Urine WBC (Auto) 0-5 Urine RBC (Auto) 0-2 U Hyaline Cast (Auto) 0-2 U Epithel Cells (Auto) 0-2 Urine Bacteria (Auto) None Seen SARS-CoV-2, RNA, NAAT Diagnostic Findings Chest X-Ray 07/22/24 11:54 XR chest 1V portable HISTORY: 88 years-old Female Dysrhythmia COMPARISON: 12/22/2023 TECHNIQUE: AP view of the chest FINDINGS: Cardiac silhouette is mildly enlarged. Atherosclerosis of the aorta. Chronic interstitial coarsening. No pneumothorax, pleural effusion or airspace consolidation. Left-sided rotator cuff calcific tendinosis. Degenerative changes of the shoulders and spine. IMPRESSION: Cardiomegaly without acute process. ACT 112: Negative or not required by law. The above report was generated using voice recognition software. It may contain grammatical, syntax or spelling errors. Electronically signed by: Cain Landin M.D. 07/22/2024 12:31 PM Chest CTA 07/22/24 13:12 CT ANGIOGRAPHY OF THE CHEST, PULMONARY EMBOLUS PROTOCOL CLINICAL HISTORY: Tachycardia. Evaluate for pulmonary embolus. COMPARISON STUDY: Chest radiograph performed earlier today. Chest radiograph July 22, 2024. TECHNIQUE: Following IV administration of 60 mL of Optiray, helical axial images of the chest were obtained utilizing the pulmonary embolus protocol. Maximal intensity projections and sagittal and coronal reformats were viewed on an independent 3D workstation. IV contrast was administered without complication. Automated exposure control was utilized for the study. A dose lowering technique was utilized adhering to the principles of ALARA. CT DOSE: 240.24 mGy.cm FINDINGS: No central or lobar pulmonary emboli are identified. Segmental and subsegmental pulmonary arteries are suboptimally assessed due to mixing artifact. The heart is moderately enlarged and there is moderate coronary artery calcification. No pericardial effusion is present. The thoracic aorta is not opacified. Ascending aorta is dilated, measuring 4.2 cm at the level of the main pulmonary artery. 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 No pneumothorax is present. There is no pleural effusion. Central airways are patent. Subpleural groundglass opacities favor atelectasis. There is no consolidation to suggest pneumonia. There are no suspicious pulmonary nodules. No acute fractures within the bony thorax are present. Visualized portions of the upper abdomen are unremarkable. The IVC and hepatic veins are mildly dilated with reflux of contrast. IMPRESSION: 1. No pulmonary emboli identified although segmental and subsegmental pulmonary arteries suboptimally assessed on this exam, as described above. 2. No acute intrathoracic findings. 3. Cardiomegaly. 4. Dilatation of the ascending aorta, measuring 4.2 cm at the level of the main pulmonary artery. 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 ACT 112: Negative or not required by law. Electronically signed by: Gerardo Phillips M.D. 07/22/2024 1:42 PM KUB X-Ray 07/22/24 14:34 KUB CLINICAL HISTORY: Abdominal pain. COMPARISON STUDY: None. FINDINGS: Incidental note is made of contrast within the collecting systems, ureters and bladder from recent contrast-enhanced CT. The bowel gas pattern is normal. There is no evidence for free air on supine exam. Severe osteoarthritis of both hips is incidentally noted. The amount of stool is within normal limits. IMPRESSION: Unremarkable KUB. No evidence for a bowel obstruction. ACT 112: Negative or not required by law. Electronically signed by: Gerardo Phillips M.D. 07/22/2024 3:32 PM PG Care Time/CCT Total # of Minutes Spent Total Time Spent with Patient: Total time spent is greater than 50% in coordination of care (as documented) at patient's floor/unit and/or counseling patient: Coding Level of Care Code 76891 SUB INP/OBS CARE 3/50MIN Diagnoses Atrial fibrillation with rapid ventricular response I48.91 Weakness R53.1 GERD (gastroesophageal reflux disease) K21.9 Dementia F03.90
[2024-07-23] MEDS: busPIRone 5 MG TAB PO PRN (16:41)
[2024-07-23] MEDS ORDERED: HALOPERIDOL LACTATE 5 MG/ML 1 ML VIAL IM PRN (16:56)
[2024-07-23] MEDS: risperiDONE 0.25 MG TAB PO SCH (20:32)
[2024-07-23] MEDS: SODIUM CHLORIDE 0.9% 250 ML IV ONE (23:39)
[2024-07-24] MEDS: SODIUM CHLORIDE 0.9% 250 ML IV ONE ×2 (00:30→01:47)
[2024-07-24] MEDS: MAGNESIUM SULFATE / D5W 1 GM/100 ML BAG IV ONE (01:47)
--- NOTE | 2024-07-24 02:19 | Communication Note ---
Date of Service: July 24, 2024 After getting up to use bathroom, HR increased to 130s/140s -> afib with RVR. Have remained elevated despite her being asleep. Attempted 250mL NSS Bolus x 3, as she has had limited PO intake and 1gm Mag IV (Mg=1.7 07/22)-> no improvement in rates. Currently on amiodarone gtt-> will give an additional 150mg bolus amiodarone.
[2024-07-24] MEDS ORDERED: 0.2 MICRON FILTER SET 1 EACH IV ONE (03:35)
[2024-07-24] MEDS: AMIODARONE / D5W 150 MG/100 ML BAG IV STA (03:46)
[2024-07-24] MEDS: METOPROLOL TARTRATE 25 MG TAB PO SCH (10:21)
--- NOTE | 2024-07-24 14:59 | Electrocardiogram Report ---
Test Reason : Blood Pressure : */* mmHG Vent. Rate : 142 BPM Atrial Rate : * BPM P-R Int : * ms QRS Dur : 68 ms QT Int : 320 ms P-R-T Axes : * 12 230 degrees QTcB Int : 492 ms Atrial fibrillation with rapid ventricular response Marked ST abnormality, possible inferior subendocardial injury Abnormal ECG When compared with ECG of 22-Jul-2024 11:44, T wave inversion less evident in Inferior leads Nonspecific T wave abnormality, improved in Anterior leads Confirmed by Mark Green ([id number]) on 07/24/2024 2:59:03 PM Referred By: AMELIE GIFFORD Confirmed By: Mark Green
--- NOTE | 2024-07-24 14:59 | Electrocardiogram Report ---
Test Reason : Blood Pressure : */* mmHG Vent. Rate : 76 BPM Atrial Rate : 76 BPM P-R Int : 86 ms QRS Dur : 68 ms QT Int : 410 ms P-R-T Axes : * 23 45 degrees QTcB Int : 461 ms Sinus rhythm with short MT Nonspecific T wave abnormality Abnormal ECG When compared with ECG of 22-Jul-2024 12:03, (unconfirmed) Sinus rhythm has replaced Atrial fibrillation Vent. rate has decreased by 66 bpm Nonspecific T wave abnormality, worse in Inferior leads Nonspecific T wave abnormality, worse in Anterior leads T wave inversion no longer evident in Lateral leads Confirmed by Mark Green ([id number]) on 07/24/2024 2:58:51 PM Referred By: REFERRED BISCOE Confirmed By: Mark Green
--- NOTE | 2024-07-24 15:02 | Electrocardiogram Report ---
Test Reason : Blood Pressure : */* mmHG Vent. Rate : 133 BPM Atrial Rate : 166 BPM P-R Int : 120 ms QRS Dur : 72 ms QT Int : 352 ms P-R-T Axes : 83 15 28 degrees QTcB Int : 523 ms Poor data quality, interpretation may be adversely affected Sinus tachycardia with Premature ventricular complexes or Fusion complexes Abnormal ECG When compared with ECG of 22-Jul-2024 13:40, (unconfirmed) Significant changes have occurred Confirmed by Mark Green ([id number]) on 07/24/2024 3:02:19 PM Referred By: AMELIE GIFFORD Confirmed By: Mark Green
--- NOTE | 2024-07-25 05:17 | Hospitalist Progress Note ---
Date of Service July 24, 2024 Assessment & Plan (1) Atrial fibrillation with rapid ventricular response: Plan: pt's a.fib is paroxysmal based on previous EKGs when she is in a.fib her rates are quite fast suspect she does get symptomatic/feels poorly when rates are >150 added metoprolol tartrate 25mg BID this am she remains on amiodarone infusion to try and maintain NSR several times this admission she has converted from a.fib to NSR and back to a.fib finally late this am she converted to NSR in the 70s will give the amiodarone infusion another 24 hours and if NSR is maintained will convert to PO amiodarone at discharge will use combination of amiodarone + metoprolol defer on Eliquis at d/c due to hospice status of note - TSH, K, mag levels all wnl (2) Weakness: Plan: likely due to #1 improved (3) GERD (gastroesophageal reflux disease): Plan: cont PPI (4) Dementia: Plan: advanced with agitation/behavioral disturbance first night in the hospital improved s/p risperdal 0.5mg at HS continue again tonight sitter (1:1) as needed Plan updated pt's son Darius Rhoades by phone yesterday evening if she does well overnight (no agitation, etc), if she maintains NSR overnight ---> convert to PO amiodarone tomorrow and can send back to the [facility] as previously planned Admission and Anticipated Discharge Date Admission Date: July 22, 2024 Subjective tele overnight - continues with rapid a.fib events of overnight - due to ongoing rapid rates night physician gave magnesium + IV fluids rates improved down to 110-120's I added back metoprolol PO this am rates improved further, then she converted back to NSR late AM tolerated risperdal - slept better and agitation improved during my visit she was pleasantly confused no agitation could not provide any meaningful history/ROS thinks she is in a restaurant Review of Systems Review of Systems: Unobtainable due to cognitive status Physical Exam Physical Exam: gen - thin, NAD, pleasantly confused neck - no JVD mouth - MMM heart - RRR, occasional extra beat, s1 s2 lungs - CTA b/l abd - soft NT ND BS+ ext - no edema, pulses 2+ b/l Results & Data Results & Data Vital Signs (Past 12 Hours) Vital Signs Temp Pulse Pulse Resp BP Pulse Ox O2 Del Method 07/25/24 02:42 36.5 C 64 18 105/56 L 95 Room Air 07/24/24 22:41 36.6 C 63 18 112/68 97 Room Air 07/24/24 21:40 72 07/24/24 19:28 36.6 C 88 18 137/83 96 Room Air PG Care Time/CCT Total # of Minutes Spent Total Time Spent with Patient: Total time spent is greater than 50% in coordination of care (as documented) at patient's floor/unit and/or counseling patient: Coding Level of Care Code 04587 SUB INP/OBS CARE 2/35MIN Diagnoses Atrial fibrillation with rapid ventricular response I48.91 Weakness R53.1 GERD (gastroesophageal reflux disease) K21.9 Dementia F03.90
[2024-07-25] MEDS: AMIODARONE 200 MG TAB PO SCH (09:45)
[2024-07-25 11:39] VITALS: RESP 18; TEMP 98.1; O2SAT 92
--- NOTE | 2024-07-25 12:12 | Discharge Summary ---
Discharge Summary Date of Service date of admission - July 22, 2024 date of discharge - July 25, 2024 Principal Dx & Hospital Course #1 = Principal Diagnosis (1) Atrial fibrillation with rapid ventricular response: pt's a.fib is paroxysmal based on her past history EKGs from the past have shown that when she is in a.fib her rates are quite fast suspect she does get symptomatic/feels poorly when rates are >150 at time of admission, in light of upcoming plans to transition her to hospice status at the [facility], it was decided to initiate amiodarone with the hopes of maintaining NSR thus, amiodarone infusion was started initially she had several times when she has converted from a.fib to NSR but ultimately went back to a.fib on 07/24/24 she finally converted back to NSR and remained in NSR until hospital discharge on 07/25/24 AM of 07/25/24 the amiodarone infusion was stopped and she was started on PO amiodarone 200mg BID plan at discharge -- * amiodarone 200mg BID x 7 days, then - * amiodarone 200mg daily thereafter (indefinitely) * metoprolol tartrate 25mg BID PRN for tachycardia * STOP Eliquis due to transition to Hospice status of note - TSH, K, mag levels all wnl while here (2) Weakness: likely due to #1 improved (3) GERD (gastroesophageal reflux disease): cont PPI (4) Dementia: advanced with agitation/behavioral disturbance while here improved s/p risperdal 0.5mg at HS will cont the risperdal upon discharge back to the [facility] she tolerated the risperdal without excess sedation of note - although risperdal and amiodarone increase the risk of QTc prolongation the benefits of each medicine outweigh the risk, especially given her Hospice status (5) Hospice care patient: upon transfer back to the [facility] [place] [facility] the patient is being transitioned to Hospice status Notes For Next Care Provider Medication Changes From Visit 1. amiodarone 200mg BID x 7 days, then 200mg daily thereafter 2. change metoprolol to PRN use only for sustained tachycardia 3. STOP Eliquis 4. zofran prn, ativan 0.5mg prn - comfort meds for hospice 5. risperdal 0.5mg HS scheduled Admission HPI Per Admitting Provider Pt is a 88 yo female with a past medical history of dementia, atrial fibrillation on eliquis and metoprolol until 07/16/2024, CAD, HLD, GERD, restless leg syndrome, anxiety who presents to the hospital from the [facility] on 07/22 for generalized decline and afib with RVR. Pt seen at bedside. She is awake and alert, very friendly, but oriented to self only. She states she is not sure why she is here because she felt fine but "I guess someone said something about my heart and then they just brought me in." She denies cough, congestion, sore throat, abdominal pain, diarrhea, chest pain, or SOB. She states she is feeling fine right now. No questions or concerns. Called over to [facility]. Staff state that they were concerned about her since over the last week or so she has complained of feeling generally unwell. She has been declining for awhile now, eating less and losing weight. Today, she was crying and inconsolable to the staff, complained of nausea and pointed to her belly to indicate she was maybe having some belly pain. She also noted shortness of breath today. Staff state she has hx of afib and was on eliquis and metoprolol until 07/16 when the metoprolol was stopped due to hypotension 100s/50s or so with rates in the 50s on BID regime and stopped from the eliquis due to shifting focus to quality of life. She is, however, no currently hospice. Son Darius is POA. Not on any inhalers or oxygen at the [facility]. Called ANDREW Mccoy. He states that he did see the pt recently and talked to the doctor at the [facility] recently about transitioning her to a more comfort centered approach. Plan was to transition her to hospice at the [facility] tomorrow, as she has been declining progressively with poor po intake and weight loss for months now. He is agreeable to continue what we are doing now without escalation of care and if she were to decline to call him and would likely then transition to a more comfort based approach. He states he lives about an hour [place] a half away. Discharge Exam gen - thin, NAD, pleasantly confused neck - no JVD mouth - MMM heart - RRR, occasional extra beat, s1 s2 lungs - CTA b/l abd - soft NT ND BS+ ext - no edema, pulses 2+ b/l Discharge Plan Discharge Items Patient Disposition: Personal Half-Way Reason For Visit: AFIB RVR Discharge Diagnosis: 1. atrial fibrillation with rapid ventricular response - improved/resolved; back to normal rhythm 2. dementia 3. transition to hospice Activity: Resume your previous activity Non-emergency contact: Primary Care Provider Call non-emergency contact if: you have any medication questions, your symptoms worsen, your pain is not controlled and your pain is worsening Follow-up/Referrals: ИРИНА, [Primary Care Provider] - Diet: Regular Addtl Attending Provider Instructions: Mrs Rhoades was hospitalized due to severe rapid a.fib. We did not find any infections (no UTI, no pneumonia, etc). Constipation/impaction was ruled out with a KUB x-ray. There was no evidence of any heart attack. She was treated with IV amiodarone infusion. Her a.fib converted over to normal rhythm on 07/24/24 and remained in normal rhythm until discharge. For night-time agitation we started risperdal 0.5mg at bedtime and this worked well for her sleep & agitation. Mrs Rhoades is transitioning to Hospice upon return to the [facility]. Recommendations - 1. amiodarone - * 200mg twice daily by mouth x 7 days, then - * 200mg once daily by mouth thereafter 2. stop Eliquis 3. use metoprolol tartrate NEEDED only. Take as follows - * if pulse/heart rate is found to be consistently greater than 100 beats per minute, please take metoprolol tartrate 25mg up to twice daily NEEDED only 4. for nausea/vomiting - * ondansetron 4mg every 6 hours as needed 5. for agitation/anxiety/sleep - * lorazepam 0.5mg every 8 hours as needed 6. for prevention of night-time agitation & confusion take - * risperdal ODT - 0.5mg at bedtime every night For any questions, concerns, new problems, uncontrolled symptoms, etc. please contact [facility] as soon as possible. It was our pleasure to care for Mrs Rhoades! -Dr Richardson Pending Studies at Discharge: No Stand-Alone Forms: My iCurrent, Smoking Cessation Skilled Items Patient informed of condition?: Yes DNR: Yes Discharge Level of Care: Other Communicable Disease: No Discharge Prognosis: Stable Lines: None Urinary Catheter: No Medications and DC Order Prescriptions: New amiodarone 200 mg Tablet 200 mg PO DIRECTED Qty: 60 5RF Rx Instructions: 200mg twice daily x 7 days, then lower to 200mg once daily thereafter. Take with food. risperidone 0.5 mg tablet,disintegrating 0.5 mg PO HS Qty: 30 2RF ondansetron 4 mg tablet,disintegrating 4 mg PO Q6H PRN (Reason: nausea and vomiting) Qty: 10 0RF lorazepam [Ativan] 0.5 mg tablet 0.5 mg sublingual Q8H PRN (Reason: anxiety/agitation/sleep) Qty: 20 0RF Continued buspirone 5 mg tablet 5 mg PO Q8H PRN (Reason: Anxiety) acetaminophen [Tylenol] 325 mg Tablet 650 mg PO Q6H PRN (Reason: pain or fever) venlafaxine 150 mg capsule,extended release 24hr 150 mg PO DAILY pantoprazole 20 mg tablet,delayed release (DR/EC) 20 mg PO DAILY Changed metoprolol tartrate 25 mg tablet 25 mg PO BID PRN (Reason: for rapid heart rate over 100 beats per minutes) Qty: 30 0RF Discontinued Eliquis 2.5 mg tablet 2.5 mg PO BID Discharge Orders: Discharge Order (Routine); Ordered 07/25/24 Ordered By: Dima iRchardson Admission Data Admit Date/Time: 07/22/24 14:46 Attending Provider: Dima Richardson Admit Provider: Chiara Butcher Primary Care Provider: ИРИНА, Other Providers: Dima Agarwal; [facility] Other Interventions: Discharge Summary Assessment (RN) Last Done: 07/25/24 13:29 Hospital Stay Data Diagnostic Imagining Performed Chest X-Ray 07/22/24 11:54 XR chest 1V portable HISTORY: 88 years-old Female Dysrhythmia COMPARISON: 12/22/2023 TECHNIQUE: AP view of the chest FINDINGS: Cardiac silhouette is mildly enlarged. Atherosclerosis of the aorta. Chronic interstitial coarsening. No pneumothorax, pleural effusion or airspace consolidation. Left-sided rotator cuff calcific tendinosis. Degenerative changes of the shoulders and spine. IMPRESSION: Cardiomegaly without acute process. ACT 112: Negative or not required by law. The above report was generated using voice recognition software. It may contain grammatical, syntax or spelling errors. Electronically signed by: Cain Landin M.D. 07/22/2024 12:31 PM Chest CTA 07/22/24 13:12 CT ANGIOGRAPHY OF THE CHEST, PULMONARY EMBOLUS PROTOCOL CLINICAL HISTORY: Tachycardia. Evaluate for pulmonary embolus. COMPARISON STUDY: Chest radiograph performed earlier today. Chest radiograph July 22, 2024. TECHNIQUE: Following IV administration of 60 mL of Optiray, helical axial images of the chest were obtained utilizing the pulmonary embolus protocol. Maximal intensity projections and sagittal and coronal reformats were viewed on an independent 3D workstation. IV contrast was administered without complication. Automated exposure control was utilized for the study. A dose lowering technique was utilized adhering to the principles of ALARA. CT DOSE: 240.24 mGy.cm FINDINGS: No central or lobar pulmonary emboli are identified. Segmental and subsegmental pulmonary arteries are suboptimally assessed due to mixing artifact. The heart is moderately enlarged and there is moderate coronary artery calcification. No pericardial effusion is present. The thoracic aorta is not opacified. Ascending aorta is dilated, measuring 4.2 cm at the level of the main pulmonary artery. 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 No pneumothorax is present. There is no pleural effusion. Central airways are patent. Subpleural groundglass opacities favor atelectasis. There is no consolidation to suggest pneumonia. There are no suspic ious pulmonary nodules. No acute fractures within the bony thorax are present. Visualized portions of the upper abdomen are unremarkable. The IVC and hepatic veins are mildly dilated with reflux of contrast. IMPRESSION: 1. No pulmonary emboli identified although segmental and subsegmental pulmonary arteries suboptimally assessed on this exam, as described above. 2. No acute intrathoracic findings. 3. Cardiomegaly. 4. Dilatation of the ascending aorta, measuring 4.2 cm at the level of the main pulmonary artery. 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 ACT 112: Negative or not required by law. Electronically signed by: Gerardo Phillips M.D. 07/22/2024 1:42 PM KUB X-Ray 07/22/24 14:34 KUB CLINICAL HISTORY: Abdominal pain. COMPARISON STUDY: None. FINDINGS: Incidental note is made of contrast within the collecting systems, ureters and bladder from recent contrast-enhanced CT. The bowel gas pattern is normal. There is no evidence for free air on supine exam. Severe osteoarthritis of both hips is incidentally noted. The amount of stool is within normal limits. IMPRESSION: Unremarkable KUB. No evidence for a bowel obstruction. ACT 112: Negative or not required by law. Electronically signed by: Gerardo Phillips M.D. 07/22/2024 3:32 PM Pending Results Patient Have Any Pending Studies at Discharge: No Discharge Instructions Given to Patient (Per Discharging Provider) Mrs Rhoades was hospitalized due to severe rapid a.fib. We did not find any infections (no UTI, no pneumonia, etc). Constipation/impaction was ruled out with a KUB x-ray. There was no evidence of any heart attack. She was treated with IV amiodarone infusion. Her a.fib converted over to normal rhythm on 07/24/24 and remained in normal rhythm until discharge. For night-time agitation we started risperdal 0.5mg at bedtime and this worked well for her sleep & agitation. Mrs Rhoades is transitioning to Hospice upon return to the [facility]. Recommendations - 1. amiodarone - * 200mg twice daily by mouth x 7 days, then - * 200mg once daily by mouth thereafter 2. stop Eliquis 3. use metoprolol tartrate NEEDED only. Take as follows - * if pulse/heart rate is found to be consistently greater than 100 beats per minute, please take metoprolol tartrate 25mg up to twice daily NEEDED only 4. for nausea/vomiting - * ondansetron 4mg every 6 hours as needed 5. for agitation/anxiety/sleep - * lorazepam 0.5mg every 8 hours as needed 6. for prevention of night-time agitation & confusion take - * risperdal ODT - 0.5mg at bedtime every night For any questions, concerns, new problems, uncontrolled symptoms, etc. please contact [facility] as soon as possible. It was our pleasure to care for Mrs Rhoades! -Dr Richardson Total Time Total Time Spent Total Time Spent (In Minutes): 40 Coding Level of Care Code 93681 INP/OBS DISCH >30 MIN Diagnoses Atrial fibrillation with rapid ventricular response I48.91 Weakness R53.1 GERD (gastroesophageal reflux disease) K21.9 Dementia F03.90 Hospice care patient Z51.5
[2024-07-25 13:30] VITALS: BP 111/66; PULSE 89
--- NOTE | 2024-07-28 09:21 | Electrocardiogram Report ---
Test Reason : Blood Pressure : */* mmHG Vent. Rate : 63 BPM Atrial Rate : 63 BPM P-R Int : 96 ms QRS Dur : 70 ms QT Int : 468 ms P-R-T Axes : * 5 24 degrees QTcB Int : 478 ms Sinus rhythm with short IA Otherwise normal ECG When compared with ECG of 23-Jul-2024 18:32, Premature ventricular complexes are no longer Present Vent. rate has decreased by [address] no longer depressed in Inferior leads ST no longer depressed in Lateral leads Confirmed by Elias Oliveira ([id number]) on 07/28/2024 9:20:54 AM Referred By: AMELIE GIFFORD Confirmed By: Elias Oliveira
== END 2024-07-25 14:00 | disposition hospice, home (50) | DRG 309 ==
LOC: ED 11:40 → 1E 14:46 → SUATTDRO 14:46 → 1E 17:26 → 4W 20:00